=== PATIENT | male | born 1965 | race Caucasian/White ===

== ENCOUNTER 2019-12-25 14:08 | Emergency (ER) | payer MEDICARE, SELFPAY ==
[2019-12-25 14:25] VITALS: BP 162/103; PULSE 97; RESP 18; TEMP 36.5; O2SAT 96; BMI 22.8
--- NOTE | 2019-12-25 14:30 | W.ED.ANIMALB ---
HPI - Animal Bite General: Chief Complaint: Animal Bite Stated Complaint: dog bite r hand Time Seen by Provider: 12/25/19 14:30 History of Present Illness: HPI narrative: Patient is a 54-year-old male who comes to the ED with a dog bite on right hand. Patient says his dog was caught in a fence and hurt. When patient tried to freeze dog from fence bit at his right hand. Patient says the dog bit down pretty hard. He says his dog is fully vaccinated and has been vaccinated for rabies as well. Injury occurred earlier this morning. He reports increasing pain and swelling in right hand. Pain rated a 7 out of 10. Puncture wounds are not actively bleeding and bite was located fifth metatarsal region. Patient says he has not had tetanus shot in a long time. Associated symptoms: Deny chills, fever(s) or headache(s) Review of Systems Const: Denies: fever(s), chills or fatigue Eyes: Denies: change in vision or eye discomfort ENMT: Denies: throat pain, odynophagia, nasal discharge or nasal congestion Card: Denies: chest pain, palpitations, edema, swelling of feet/ankles, dyspnea on exertion or orthopnea Resp: Denies: dyspnea, productive cough or non-productive cough GI: Denies: abdominal pain, nausea, vomiting, diarrhea, constipation or hematochezia : Denies: flank pain, difficulty urinating, dysuria or hematuria Musc: Reports: extremity pain (right hand) and extremity swelling (Right hand swelling.); Denies: neck pain or back pain Skin/Breast: Reports: new lesions (Dog bite puncture wounds on right hand.); Denies: rash Neuro: Denies: headache(s), numbness in extremities or weakness in extremities Physical Exam Const: COMMON NORMALS: no acute distress, patient oriented x3 and alert GENERAL APPEARANCE: cooperative and comfortable HENMT: COMMON NORMALS: normocephalic HEAD & SCALP: normocephalic MOUTH: Normal oral and palatal mucosa present THROAT: posterior oropharynx normal and uvula midline Neck/C-Spine: COMMON NORMALS: supple GENERAL: Yes normal visual inspection Resp: COMMON NORMALS: normal respiratory effort, No retractions, No use of accessory muscles and clear to auscultation bilaterally AUSCULTATION: clear to auscultation bilaterally Cardio: COMMON NORMALS: regular rate, regular rhythm, S1 normal heart sound present, S2 normal heart sound present, No gallops present (Cardio), No clicks present (Cardio), No murmurs present (Cardio) and Peripheral pulses 2+ throughout RATE: regular rate RHYTHM: regular rhythm HEART SOUNDS: S1 normal heart sound present and S2 normal heart sound present PERIPHERAL PULSES: Peripheral pulses 2+ throughout GI: COMMON NORMALS: Normal to inspection, nondistended, normoactive bowel sounds present, Soft to palpation, non-tender and no masses PALPATION: Yes Soft to palpation : COMMON NORMALS: Yes no CVA tenderness BLADDER/KIDNEY EXAM: Yes no CVA tenderness Back/Pelvis: COMMON NORMALS: no CVA tenderness Extremity: NARRATIVE EXTREMITY EXAM: Right hand?patient has visible swelling metatarsal area of the fifth digit. There is also ecchymosis present. Puncture wounds seen right hand with no bleeding or purulent drainage. No warmth or erythema present. Tender upon palpation fifth digit and especially metatarsal region. Neuro: COMMON NORMALS: patient oriented x3 and moves all extremities SENSORIUM/ORIENTATION: Yes alert Skin: TRAUMA: puncture (Multiple puncture wounds on right hand that have no active bleeding or drainage. No surrounding erythema or warmth.) Course Vital Signs: Vital signs: Vital Signs Temperature 97.7 F 12/25/19 14:25 Pulse Rate 97 12/25/19 14:25 Respiratory Rate 18 12/25/19 14:25 Blood Pressure 162/103 12/25/19 14:25 Pulse Oximetry 96 12/25/19 14:25 MDM - Animal Bite MDM Narrative: Medical decision making narrative: Patient is a 54-year-old male comes to the ED with right hand after dog bite. Patient says it was his own dog and the dog was fully vaccinated including for rabies as well. Right hand- had swelling and ecchymosis around the metatarsal region of the fifth digit along with some puncture wounds seen with no erythema warmth or purulent drainage. X-ray of right hand showed proximal nondisplaced phalanx fracture of fifth digit. Patient was given updated tetanus shot and given of dose of Bactrim while here in the ED. He was sent home with a finger splint and a prescription for Bactrim and a prescription for hydrocodone 5/325mg tabs-qty 8. Follow-up with PCP in 7 to 10 days for reevaluation. Return to ED precautions given and I highlighted the concerns of infection. patient understood and agreed with plan. Imaging Data^: Xray Ortho: Attestation: I personally reviewed and interpreted this imaging study as follows: My impression: Right hand x-ray?patient is nondisplaced fracture of proximal phalanx of fifth digit. Discharge Plan Discharge Patient Disposition: Home Clinical Impression: Bite by animal Proximal phalanx fracture of finger Qualifiers: Encounter type: initial encounter Finger: little finger Fracture type: open Fracture alignment: nondisplaced Laterality: right Qualified Code(s): S62.646B - Nondisplaced fracture of proximal phalanx of right little finger, initial encounter for open fracture Condition: Stable Prescriptions: New sulfamethoxazole-trimethoprim 800-160 mg tablet 1 tab PO BID 7 Days Qty: 14 RF: 0 Discharge Orders: Discharge Order (Routine); Ordered 12/25/19 Ordered By: Elías Tubbs Discharge Diet: Regular Discharge Activity: Limit activity as instructed Patient Instructions: Fractures - Phalanx (Finger), Animal Bite (ED) Activity Restrictions/Additional Instructions: Follow-up with medical provider as directed in 7 to 10 days. Take medications as prescribed. Return to the ER or your medical provider if condition worsens. Please read and understand discharge instructions. If any questions, please ask. 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
--- NOTE | 2019-12-25 14:36 | XRR_ITS ---
PROCEDURE INFORMATION: Exam: XR Right Hand Exam date and time: 12/25/2019 2:40 PM Age: 54 years old Clinical indication: Injury or trauma; Other: Dog bite; Hand; Right; Additional info: Dog bit on hand with swelling TECHNIQUE: Imaging protocol: XR Right hand. Views: 3 or more views. COMPARISON: No relevant prior studies available. FINDINGS: Bones/joints: There is a nondisplaced spiral fracture of the diaphysis of the 5th proximal phalanx. No dislocation. Soft tissues: There is soft tissue edema. No foreign body. XR/XR hand RT min 3V* [id number] IMPRESSION: There is a nondisplaced spiral fracture of the diaphysis of the 5th proximal phalanx. One
[2019-12-25] MEDS: HYDROcodone-acetaminophen 7.5-325 mg Tablet 1 TAB PO (15:10)
[2019-12-25] MEDS: amoxicillin-clav 500-125 mg Tablet 1 TAB PO (15:10)
[2019-12-25] MEDS: tetanus-diphtheria tox (adult) 0.5 mL SDV IM (15:12)
[2019-12-25] MEDS: sulfamethoxazole-trimeth DS 160-800 mg Tablet 1 TAB PO (15:17)
== END 2019-12-25 15:20 | disposition home or self-care (01) ==
PROVIDERS: Emergency Provider Physician Assistant
DX: S62.646B Nondisplaced fracture of proximal phalanx of right little finger, initial encounter for open fracture (principal); S61.451A Open bite of right hand, initial encounter; W54.0XXA Bitten by dog, initial encounter; Z23 Encounter for immunization
CPT/HCPCS: 12345; 73130; 90471; 90714; 99281; 99283

== ENCOUNTER → 2020-01-06 14:35 | Outpatient (BNVA) | payer MEDICARE, SELFPAY | PROVIDERS: Referring Provider Nurse Practitioner; Visit Provider Orthopaedic Surgery | DX: S62.609 Fracture of unspecified phalanx of unspecified finger (principal); X58.XXXS Exposure to other specified factors, sequela; Z46.89 Encounter for fitting and adjustment of other specified devices; S62.616D Displaced fracture of proximal phalanx of right little finger, subsequent encounter for fracture with routine healing; X58.XXXD Exposure to other specified factors, subsequent encounter | CPT/HCPCS: 73140; 97760; L3807 ==

== ENCOUNTER 2020-01-06 14:58 | Outpatient (CLI) | payer MEDICARE, MEDICAID, SELFPAY | END 2020-01-06 14:59 | disposition home or self-care (01) | LOC: SPT 14:59 | PROVIDERS: Visit Provider Orthopaedic Surgery | DX: Z46.89 Encounter for fitting and adjustment of other specified devices (principal); S62.616D Displaced fracture of proximal phalanx of right little finger, subsequent encounter for fracture with routine healing; X58.XXXD Exposure to other specified factors, subsequent encounter | CPT/HCPCS: 97760; L3807 ==

== ENCOUNTER → 2020-01-25 15:01 | Outpatient (BNVA) | payer MEDICARE, SELFPAY | PROVIDERS: Visit Provider Orthopaedic Surgery | DX: S62.616D Displaced fracture of proximal phalanx of right little finger, subsequent encounter for fracture with routine healing (principal); W54.0XXD Bitten by dog, subsequent encounter; S62.626D Displaced fracture of middle phalanx of right little finger, subsequent encounter for fracture with routine healing | CPT/HCPCS: 73140 ==

== ENCOUNTER → 2020-02-22 14:02 | Outpatient (BNVA) | payer MEDICARE, SELFPAY | PROVIDERS: Visit Provider Orthopaedic Surgery | DX: M54.9 Dorsalgia, unspecified (principal); M54.2 Cervicalgia; Z47.89 Encounter for other orthopedic aftercare | CPT/HCPCS: 72050; 72114 ==

== ENCOUNTER 2020-03-28 07:34 | Outpatient (CLI) | payer MEDICARE, SELFPAY ==
--- NOTE | 2020-03-28 07:41 | MR_ITS ---
WS: [id number] MRI LUMBAR SPINE NONCONTRAST TECHNIQUE: Sagittal T1, T2 and STIR imaging. Axial T1 and T2 imaging. CLINICAL INFORMATION: M48.061 - Spinal stenosis, lumbar region without neurogenic claudication COMPARISON: MRI FINDINGS: Mild lumbar curve. No acute compression. Anterior lumbar fusion L5-S1 with interbody fusion. Alignmen t appears unchanged since 2018. No high-grade central canal stenosis. L1-L2: Normal. L2-L3: No significant disc bulging. Mild facet arthropathy. Spinal canal and foramen are patent. L3-L4: Small left foraminal protrusion with mild left and no significant right foraminal narrowing. M ild facet arthropathy. Spinal canal is patent. L4-L5: Mild annular bulging with narrowing of the subarticular recess bilaterally. Slight encroachmen t traversing L5 nerve roots. Small right foraminal protrusion contacts the exiting right L4 nerve helder t. Mild right foraminal narrowing. Mild left foraminal narrowing. Moderate facet arthropathy. L5-S1: Postoperative changes anterior interbody cervical fusion. Central osteophytic ridging with sli ght effacement of the ventral thecal sac. Mild right foraminal narrowing. Mild facet arthropathy. Visualized pelvic bony structures: Normal. Paravertebral soft tissues: Normal. MR/MR lumbar spine wo con* [id number] IMPRESSION: 1. Mild lumbar curve. No acute compression. Stable appearing anterior interbod y fusion L5-S1. 2. Small right foraminal protrusion L4-5 contacts the exiting right L4 nerve r oot. 3. Mild annular bulging L4-5 with slight encroachment traversing L5 nerve root s bilaterally. 4. Mild to moderate facet arthropathy L4-L5 and L5-S1. 5. Tiny left foraminal protrusion L3-4 with mild left foraminal narrowing.
--- NOTE | 2020-03-28 07:41 | MR_ITS ---
WS: [id number] MRI CERVICAL SPINE NONCONTRAST TECHNIQUE: Sagittal T1, T2 and STIR imaging. Axial T2, gradient, and fiesta imaging. CLINICAL INFORMATION: M47.12 - Other spondylosis with myelopathy, cervical region COMPARISON: CT 9 FINDINGS: Straightening of the normal cervical lordosis. Prior postoperative changes C3-C6 with interbody fusio n. Mild central canal stenosis C3-C6. Cord signal is normal. C2-C3: Normal. C3-C4: ACDF. Mild central canal stenosis. Mild bilateral bony foraminal narrowing. Mild facet arthrop athy. C4-C5: ACDF. Mild central canal stenosis. Mild bilateral bony foraminal narrowing. Mild facet arthrop athy. C5-C6: ACDF. Mild central canal stenosis. Moderate bilateral bony foraminal narrowing. Mild facet art hropathy. C6-C7: ACDF. Moderate to severe right and moderate left bony foraminal narrowing. Mild facet arthropa thy. C7-T1: Right pericentral disc protrusion with contact of the right ventral cervical cord. Mild t o moderate central canal stenosis. Moderate right and mild left bony foraminal narrowing. Moderate fa cet arthropathy. T1-T2: Small central disc protrusion. Mild central canal stenosis. Foramen appear patent. Visualized brain stem structures: Normal. Prevertebral soft tissues: Normal. MR/MR cervical spin wo con* [id number] IMPRESSION: 1. Straightening of the normal cervical lordosis with prior ACDF C3-C6. 2. Mild central canal stenosis C3-C6 appears unchanged. 3. Bony foraminal narrowing worse at right C5-C6 and C6-C7. 4. Shallow right pericentral protrusion C7-T1 with slight contact of the cervi soraya cord and mild to moderate central canal stenosis. Moderate right C7-T1 bony foraminal narrowing.
== END 2020-03-28 07:35 | disposition home or self-care (01) ==
PROVIDERS: Visit Provider Orthopaedic Surgery
DX: M47.12 Other spondylosis with myelopathy, cervical region (principal); M48.061 Spinal stenosis, lumbar region without neurogenic claudication; M51.26 Other intervertebral disc displacement, lumbar region; M47.816 Spondylosis without myelopathy or radiculopathy, lumbar region; M47.817 Spondylosis without myelopathy or radiculopathy, lumbosacral region; M50.23 Other cervical disc displacement, cervicothoracic region; M43.22 Fusion of spine, cervical region; M48.02 Spinal stenosis, cervical region
CPT/HCPCS: 72141; 72148

== ENCOUNTER → 2020-05-09 08:14 | Outpatient (BNVA) | payer MEDICARE, SELFPAY | PROVIDERS: Visit Provider Anesthesiology Pain Medicine | DX: M48.061 Spinal stenosis, lumbar region without neurogenic claudication (principal); M47.12 Other spondylosis with myelopathy, cervical region; M54.12 Radiculopathy, cervical region; M47.812 Spondylosis without myelopathy or radiculopathy, cervical region; M47.816 Spondylosis without myelopathy or radiculopathy, lumbar region; M54.16 Radiculopathy, lumbar region; F17.210 Nicotine dependence, cigarettes, uncomplicated | CPT/HCPCS: 99205 ==

== ENCOUNTER → 2020-05-17 13:15 | Outpatient (BNVA) | payer MEDICARE, SELFPAY | PROVIDERS: Visit Provider Anesthesiology Pain Medicine | DX: M54.12 Radiculopathy, cervical region (principal); F17.210 Nicotine dependence, cigarettes, uncomplicated | CPT/HCPCS: 62321; J1100 ==

== ENCOUNTER → 2020-06-02 09:51 | Outpatient (BNVA) | payer MEDICARE, SELFPAY | PROVIDERS: PCP Family Medicine; Visit Provider Anesthesiology Pain Medicine | DX: G89.29 Other chronic pain (principal); M51.17 Intervertebral disc disorders with radiculopathy, lumbosacral region; M48.061 Spinal stenosis, lumbar region without neurogenic claudication; M47.12 Other spondylosis with myelopathy, cervical region; M47.812 Spondylosis without myelopathy or radiculopathy, cervical region; M47.816 Spondylosis without myelopathy or radiculopathy, lumbar region; G62.9 Polyneuropathy, unspecified; F17.210 Nicotine dependence, cigarettes, uncomplicated | CPT/HCPCS: 99214 ==

== ENCOUNTER → 2020-06-05 10:42 | Outpatient (BNVA) | payer MEDICARE, SELFPAY | PROVIDERS: PCP Family Medicine; Visit Provider Surgery | DX: D17.1 Benign lipomatous neoplasm of skin and subcutaneous tissue of trunk (principal); Z20.822 Contact with and (suspected) exposure to COVID-19 | CPT/HCPCS: 87635 ==

== ENCOUNTER 2020-06-08 07:36 | Day surgery (SDC) | payer MEDICARE, SELFPAY ==
[2020-06-08 07:40] VITALS: BP 149/102; PULSE 100; RESP 18; TEMP 36.2; O2SAT 99
[2020-06-08] MEDS: sodium chloride 0.9% 1,000 ML 30 ML IV (08:01)
--- NOTE | 2020-06-08 08:13 | P.ANESASSM_ITS ---
Pre-Anesthetic Assessment Pre-Anesthetic Assessment: Height/Weight: Height 1.75 m Temp Pulse Resp BP Pulse Ox 97.1 F L 100 18 149/102 99 06/08/20 07:40 06/08/20 07:40 06/08/20 07:40 06/08/20 07:40 06/08/20 07:40 Preop Diagnosis: lipoma Proposed Procedure: Operation Date: 06/08/20 09:00 Proposed Procedures p EXCISION OF LIPOMA ON BACK 95079 D17.1(Not Applicable) - Minh Grimes MD Familial anesthetic complications: None Was Beta Collin taken within 24 hours: N/A Was Clonidine taken within 24 hours: N/A Last intake: NPO > 8 hrs Social: Social History: Tobacco and No alcohol Exam: Pre-Anes Outpt Exam: alert, oriented x 3, clear to auscultation bilaterally and regular rate & rhythm Airway: Cervical ROM: WNL (hurts during extension, has anterior cervical plate) MP: 4 Dentition: Other (no teeth) CV/HEM: CV/HEM: HTN Anesthetic Plan: ASA status: 2 Anesthesia: MAC Risk of > 500 ml blood loss (7ml/kg in children): No Meds/Allergies Current Medications: Current Medications Generic Name Dose Route Start Last Admin Trade Name Freq PRN Reason Stop Dose Admin Sodium Chloride 1,000 mls @ 30 ml s/hr 06/08/20 07:45 06/08/20 08:01 Sodium Chloride 0.9% IV 06/09/20 07:44 30 mls/hr .Q24H SHANNAN Administration PFSH Anesthesia PFSH: Medical History Benign essential HTN Surgical History History of lumbar fusion S/p bilateral carpal tunnel release S/P right knee surgery Status post left inguinal hernia repair Family History Mother No problems noted. Father , Had a pacemaker and defibrillator for 26 yeas Congestive heart failure Social History Smoking and tobacco status: current every day smoker cigarettes Packs smoked per day: 1 Alcohol intake: never History of recent travel: No Data Anesthesia Cardiac Studies: 2 No Data to Display
[2020-06-08] MEDS: vancomycin 1,000 MG in sodium chloride 0.9% 250 ML 250 MG IV (08:24)
--- NOTE | 2020-06-08 08:25 | SUR.PHASEII ---
talked to jeanette watkins is surgery and she informed me to start vanc at 0830.
--- NOTE | 2020-06-08 09:15 | W.PM.OPSUD ---
Surgery/Procedure H&P Update DATE OF PROCEDURE: June 08, 2020 DATE H&P PERFORMED: 05/26/20 H&P UPDATE INFORMATION: I have reviewed H&P completed within last 30 days, I have examined patient prior to procedure and No changes to prior documentation PREOP DIAGNOSIS: lipoma PLANNED PROCEDURE: Operation Date: 06/08/20 09:00 Proposed Procedures p EXCISION OF LIPOMA ON BACK 37194 D17.1(Not Applicable) - Minh Grimes MD
[2020-06-08] MEDS: lidocaine 1% INJ 20 mL SUBCUT (09:49)
[2020-06-08 10:01] VITALS: BP 109/79; PULSE 82; RESP 17; TEMP 36.9; O2SAT 97
--- NOTE | 2020-06-08 10:03 | P.PCN_ITS ---
PACU note PACU note: VSS, Good respiratory effort, report to GUITAR REPAIR TECHNICIAN Post-Anesthesia Exam: awake
--- NOTE | 2020-06-08 10:03 | PM.PACU ---
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
[2020-06-08 10:05] VITALS: BP 114/86; PULSE 78; RESP 14; O2SAT 93
[2020-06-08 10:10] VITALS: BP 115/90; PULSE 79; RESP 14; TEMP 36.8; O2SAT 97
--- NOTE | 2020-06-08 10:13 | PM.OP ---
Operative Report Date of procedure: June 08, 2020 Pre-op Diagnosis: 7 x 7 cm lipoma shoulder Post-op diagnosis: same Procedure Done: Excision of lipoma left shoulder Pathology: Lipoma left shoulder Surgeon: Minh Grimes Anesthesia: MAC Condition: stable Disposition: PACU Procedure: The patient was taken to the operating room and placed in right lateral position under MAC after IV antibiotic had been administered. The area around the palpable mass which was previously marked was prepped and draped in a sterile manner. 20cc of 1% lidocaine with 0.5% Marcaine was infiltrated around the palpable mass. A 5 cm transverse incision was made, subcutaneous tissue was divided using electrocautery and the lipoma was dissected free from the surrounding subcutaneous tissue and underlying muscular fascia and sent to pathology in formalin. Wound was irrigated with saline, hemostasis ensured and the subcutaneous tissues approximated using running 3-0 Vicryl suture and skin was closed with running subcuticular 4-0 Monocryl suture and surgical glue. The patient was transferred to recovery room in stable condition.
[2020-06-08 10:16] VITALS: BP 132/99; PULSE 78; RESP 18; TEMP 36.8; O2SAT 97
[2020-06-08 10:45] VITALS: BP 111/86; PULSE 68; RESP 18; TEMP 37.1; O2SAT 97
--- NOTE | 2020-06-08 13:30 | ANE.PACU2 ---
Inpatient post-anesthesia follow up: Airway intact: Yes Vital signs: Temperature 98.7 F Pulse Rate 68 Respiratory Rate 18 Blood Pressure 111/86 Pulse Oximetry 97 Oxygen Delivery Me thod Room Air Oxygen Flow Rate Fraction of Inspir ed Oxygen Hydration adequate: Yes Nausea and vomiting: No Pain level: 2 Mental status: Baseline
== END 2020-06-08 10:54 | disposition home or self-care (01) ==
PROVIDERS: PCP Family Medicine; Visit Provider Surgery
PROC: (CPT 11406; principal; 2020-06-08 09:00)
DX: D17.22 Benign lipomatous neoplasm of skin and subcutaneous tissue of left arm (principal); I10 Essential (primary) hypertension; L76.32 Postprocedural hematoma of skin and subcutaneous tissue following other procedure; Z98.1 Arthrodesis status; F17.210 Nicotine dependence, cigarettes, uncomplicated; Z82.49 Family history of ischemic heart disease and other diseases of the circulatory system
CPT/HCPCS: 11406; 12032; 88304; 96365; J0690; J1885; J2270; J2704; J3010; J3370; J3490; J7030; J7050

== ENCOUNTER 2020-06-08 13:15 | Day surgery (SDC) | payer MEDICARE, SELFPAY ==
[2020-06-08] VITALS (11 sets, daily range): BP systolic 126–143; BP diastolic 80–90; PULSE 81–87; RESP 16–20; TEMP 36.6; O2SAT 97–100
--- NOTE | 2020-06-08 13:23 | W.PM.OPSFHP ---
Same Day Surgery H&P Indication for Procedure/HPI DATE OF PROCEDURE: June 08, 2020 CHIEF COMPLAINT/INDICATIONFOR SURGICAL PROCEDURE: Postop hematoma after excision of lipoma left shoulder PREOP DIAGNOSIS: post op hematoma PLANNED PROCEDRUE: Operation Date: 06/08/20 14:10 Proposed Procedures p Incision And Drainage(Left) - Minh Grimes MD This is a 54-year-old male who had undergone excision of a 7 x 7 cm lipoma left shoulder earlier this morning. He subsequently went home and was sleeping on his recliner. When he woke up later in the day he noticed some drainage of blood and swelling at the postop site. He was seen in preop and an attempt was made to aspirate the hematoma which was unsuccessful. Patient was in moderate amount of pain and therefore decision was made to take him back to surgery for evacuation of hematoma. Medications/Allergies* Allergies/Adverse Reactions Allergy/AdvReac Type Severity Reaction Status Date / Time divalproex sodium Allergy ADR-Nausea Verified 06/08/20 08:09 [From Depakote] methadone Allergy RASH Verified 06/08/20 08:09 Penicillins Allergy RASH Verified 06/08/20 08:09 quetiapine [From Seroquel] Allergy RASH Verified 06/08/20 08:09 Pertinent History/Comorbid Conditions* Medical History (Updated 06/02/20 @ 10:56 by Uli Van MD) Benign essential HTN Surgical History (Updated 06/08/20 @ 10:12 by Minh Grimes MD) History of lumbar fusion S/p bilateral carpal tunnel release S/P excision of lipoma (06/08/20) left upper back S/P right knee surgery Status post left inguinal hernia repair Family History (Updated 05/09/20 @ 08:33 by Veronica Mendze LPN) Father, Had a pacemaker and defibrillator for 26 yeas Congestive heart failure Father Social History Smoking and tobacco status: current every day smoker cigarettes Packs smoked per day: 1 Alcohol intake: never History of recent travel: No Pertinent Exam Findings alert, oriented x 3, regular rate & rhythm and operative site marked 7 x 7 cm postop hematoma at the surgical site Recommendations Surgery/Procedure today Other Plans: Plan for evacuation of hematoma left shoulder under local anesthesia Procedure, risks, benefits and alternatives have been discussed with the patient who wishes to proceed with surgery. 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
[2020-06-08] MEDS: morphine 4 mg/mL SDV 1 mL IVP (13:45)
[2020-06-08] MEDS: ketorolac 30 mg/mL INJ IVP (13:45)
[2020-06-08] MEDS: lidocaine 1% INJ 20 mL 40 ML IM (14:07)
[2020-06-08] MEDS: neomycin-poly-bacitracin oint 28 gm 1 APPLIC TOPICAL (14:07)
--- NOTE | 2020-06-08 14:52 | PM.OP ---
Operative Report Date of procedure: June 08, 2020 Pre-op Diagnosis: 1. Postop hematoma status post excision of lipoma left upper shoulder Post-op diagnosis: same Procedure Done: Evacuation of hematoma left shoulder Pathology: none sent Surgeon: Minh Grimes Anesthesia: Local Condition: stable Disposition: PACU Procedure: The patient is taken to the operating room and placed in right arm position under MAC. 70 cc mixture of 1% lidocaine mixed with .5% Marcaine was infiltrated around the hematoma. Using 15 blade the prior incision was opened with drainage of hematoma. The wound was irrigated with saline and there were couple of small bleeders noted which were tied off with 3-0 Vicryl sutures. 8 x 4 cm Surgicel was placed within the wound after hemostasis was ensured. Patient also had some of the hematoma extending into the muscle planes which could not be evacuated. After hemostasis was ensured, subcutaneous tissue was approximated using interrupted 3-0 Vicryl suture and skin was closed with 3-0 Prolene suture. Antibiotic cream, Telfa and pressure dressings were applied. Patient tolerated procedure well.
== END 2020-06-08 15:04 | disposition home or self-care (01) ==
PROVIDERS: PCP Family Medicine; Visit Provider Surgery
PROC: (CPT 10140; principal; 2020-06-08 14:00)
DX: L76.32 Postprocedural hematoma of skin and subcutaneous tissue following other procedure (principal); Z98.1 Arthrodesis status; F17.210 Nicotine dependence, cigarettes, uncomplicated; I10 Essential (primary) hypertension; Z82.49 Family history of ischemic heart disease and other diseases of the circulatory system
CPT/HCPCS: 10140; J0690; J1885; J2270; J3490

== ENCOUNTER → 2020-06-30 09:50 | Outpatient (BNVA) | payer MEDICARE, SELFPAY | PROVIDERS: PCP Family Medicine; Visit Provider Anesthesiology Pain Medicine | DX: G89.29 Other chronic pain (principal); M47.12 Other spondylosis with myelopathy, cervical region; M47.812 Spondylosis without myelopathy or radiculopathy, cervical region; M51.17 Intervertebral disc disorders with radiculopathy, lumbosacral region; M48.061 Spinal stenosis, lumbar region without neurogenic claudication; M47.816 Spondylosis without myelopathy or radiculopathy, lumbar region; G62.9 Polyneuropathy, unspecified; F17.210 Nicotine dependence, cigarettes, uncomplicated | CPT/HCPCS: 99214 ==

== ENCOUNTER 2020-07-10 07:32 | Outpatient (CLI) | payer MEDICARE, SELFPAY ==
[2020-07-10 08:15] VITALS: BMI 22.8
--- NOTE | 2020-07-10 08:15 | ECG_ITS ---
[facility] Test Date: 2020-07-10 Pat Name: Ezra Pickering Department: Room: Gender: Male [employer]worker [employer]: : 1965 Requested By: Daphney Celestin Order Number: [id number] Boyle MD: Xiao Hinds M.D. Interpretive Statements NAME OF STUDY: LEXISCAN SESTAMIBI STRESS TEST INDICATION: Atypical Chest Pain PROCEDURE: At the baseline, the blood pressure was 135/92 mmHg with a heart rate of 66 bpm. The electrocardiogram showed normal sinus rhythm, normal axis with normal ST-T's. The Lexiscan was infused over a period of 20 seconds. A total of 0.4 milligrams of Lexiscan was infused. The stress phase was continued for a total of 5 minutes. Heart rate at the end of the stress phase was 83 bpm with a blood pressure of 131/85 mmHg. The EKG at the peak infusion revealed sinus rhythm with no significant ST-T wave changes. The study was terminated due to protocol completion. Sestamibi was injected 20 seconds after the Lexiscan infusion. Blood pressure at the end of the recovery phase was 123/90 mmHg with a heart rate of 93 beats per minute. CONCLUSION: 1. No significant EKG changes with the LexiScan infusion 2. No LexiScan induced chest pain or cardiac arrhythmia. 3. Normal blood pressure and heart rate response. 4. Sestamibi/sestamibi perfusion scan pending; see separate report. Electronically Signed On 07-11-2020 18:37:30 CDT by Xiao Hinds M.D. [id number]
--- NOTE | 2020-07-10 08:16 | NMCV_ITS ---
NM cachorro perf SPECT r/s* [id number] Ezra Pickering Age: 54 Gender: M : 1965 Exam Date: 07/10/2020 08:53 Ordering Phys: Daphney Celestin DO Technologist: HALLEY Vick Exam Location: [facility] Indications: ATYPICAL CHEST PAIN STRESS TEST Please see separate stress test report in [facility] for full findings IMAGE PROTOCOL Rest/Stress 1 Lexiscan Day Radiopharmaceutical Dose (mCi) Administration Site Administered by Rest: Tc-99m 10.4 IV HALLEY Vick Sestamibi Stress:Tc-99m 32.9 IV HALLEY Reeder Sestamibi Rest: 10-Jul-2020 60 Discovery 630 Stress: 10-Jul-2020 30 Discovery 630 0.4mg Lexiscan. Images obtained in supine and prone position. SPECT RESULTS Technical Quality: Excellent Raw Data Analysis: Normal Image Corrections: No attenuation or motion correction applied Summed Stress Score: 1 Summed Rest Score: 0 Summed Difference Score: 1 PERFUSION FINDINGS Small sized reversible sized perfusion abnormality of mild severity of apical lateral and apical chi. FUNCTIONAL RESULTS (calculated via Gated SPECT) Stress Image LV EF (%): 72 Stress EDV (mL):86 TID: 1.04 Stress ESV (mL):24 FUNCTIONAL FINDINGS: The left ventricle is normal in size. Transient Ischemia Dilatation of 1. There is normal left ventricular systolic function. The left ventricular ejection fraction is normal with a value of 72%. There is normal left ventricular wall thickening with no regional wall motion abnormality. Normal end diastolic and end systolic volumes. IMPRESSIONS 1. Small sized reversible sized perfusion abnormality of mild severity of apical lateral and apical chi. 2. This may represent small area of ischemia in left anterior descending artery territory. 3. Overall left ventricular systolic function is normal without regional wall motion abnormalities. 4. The left ventricular ejection fraction is normal with a value of 72%. 5. This appears to be new when compared to stress test dated 02/09/2018. Xiao Hinds MD (Electronically Signed) Final Date: 13 Jul 2020 15:42 S
[2020-07-10 10:00] VITALS: BP 123/90; PULSE 93
[2020-07-10] MEDS: regadenoson 0.4 Mg/5 ml Syringe IVP (10:01)
== END 2020-07-10 07:33 | disposition home or self-care (01) ==
LOC: RAD 07:41 → CDL 08:11
PROVIDERS: PCP Family Medicine; Visit Provider Family Medicine
DX: R07.89 Other chest pain; R06.09 Other forms of dyspnea; I10 Essential (primary) hypertension; R35.1 Nocturia
CPT/HCPCS: 78452; 80053; 80061; 82043; 84153; 85025; 93017; A9500; J2785

== ENCOUNTER → 2020-07-17 13:48 | Outpatient (BNVA) | payer MEDICARE, SELFPAY | PROVIDERS: PCP Family Medicine; Visit Provider Anesthesiology Pain Medicine | DX: M54.12 Radiculopathy, cervical region (principal); F17.210 Nicotine dependence, cigarettes, uncomplicated | CPT/HCPCS: 62321; J1100 ==

== ENCOUNTER → 2020-07-28 10:56 | Outpatient (BNVA) | payer MEDICARE, SELFPAY | PROVIDERS: PCP Family Medicine; Visit Provider Anesthesiology Pain Medicine | DX: M48.061 Spinal stenosis, lumbar region without neurogenic claudication (principal); M54.16 Radiculopathy, lumbar region; M47.816 Spondylosis without myelopathy or radiculopathy, lumbar region; M47.12 Other spondylosis with myelopathy, cervical region; M54.12 Radiculopathy, cervical region; M47.812 Spondylosis without myelopathy or radiculopathy, cervical region; F17.210 Nicotine dependence, cigarettes, uncomplicated | CPT/HCPCS: 99214 ==

== ENCOUNTER → 2020-08-17 10:59 | Outpatient (BNVA) | payer MEDICARE, SELFPAY | PROVIDERS: PCP Family Medicine; Visit Provider Internal Medicine Cardiovascular Disease | DX: R94.39 Abnormal result of other cardiovascular function study (principal); Z01.818 Encounter for other preprocedural examination; Z20.822 Contact with and (suspected) exposure to COVID-19 | CPT/HCPCS: 80048; 85025; 85610; 87635 ==

== ENCOUNTER 2020-08-22 07:27 | Day surgery (SDC) | payer MEDICARE, SELFPAY ==
[2020-08-22] VITALS (14 sets, daily range): BP systolic 95–146; BP diastolic 68–94; PULSE 59–90; RESP 15–23; TEMP 36.6; O2SAT 93–100; BMI 23.8
--- NOTE | 2020-08-22 07:30 | XACV_ITS ---
Ht: 175 cm Wt: 73 kg BSA: 1.89 m2 Gender: Male : 1965 Any Known Allergies: Other Exam Priority: Routine Procedure(s): Procedure Description: Diagnostic procedure Diagnostic Findings * Left Main has no disease. * Circumflex has no disease. * Right Coronary Artery has no disease. * Proximal Left Anterior Descending: moderate 50% stenosis, CHRISS: 3 flow, FFR performed: ratio is 0.93. * Coronary angiography shows right dominance. Conclusions 1. There is moderate coronary artery disease with one vessel disease. 2. FFR: After equalizing the distal and proximal pressure of FFR wire proximal to the lesion, proximal LAD lesion was crossed with FFR wire. IV adenosine at rate of 140 mcg/min was started. Patient did not compliant of any symptoms, at then end of two minutes FFR was recorded as 0.93, which is not significant . Recommendations * Continue current medical management and risk factor modification. Interventional RX Recommendation: medical therapy and/or counseling Diagnostic RX Recommendation: medical therapy and/or counseling Pressures Phase:Rest AO : 194 / 60 ( 88 ) @ 9:09:00 AM 103 / 73 ( 88 ) @ 9:15:00 AM 150 / 51 ( 48 ) @ 9:16:00 AM LV : 106 / 8 / 12 @ 9:15:00 AM 109 / 9 / 20 @ 9:15:00 AM Valves Phase:DefaultPhase AV : 4.0 @ 10:44:12 AM AV Mean Gradient: 6.0 @ 10:44:12 AM 6.0 @ 10:44:12 AM Clinical Evaluation EBL: 5mL-10mL Procedural Details Procedure Consent Obtained. Pre-Procedure Time Out. Identified patient by full name and date of as verbalized by the patient/guarantor. Does the consent match the physician's order: Yes. Accurate & Complete Informed Consent: Yes. Inpatient/Outpatient History & Physical on Chart: Yes. If H&P is completed, is and addenduem needed: N/A; If yes, is the addendum complete: N/A. Visualize and Verify Site with Patient/Guarantor: N/A. Relevant Radiology Images available: Yes. Pre-op teaching completed and patient verbalized understanding. The risks, benefits, and alternatives of sedation and/or procedure were discussed by physician. The patient agrees to continue. Procedure started. PERRLA. Strong, equal hand craft superintendent bilaterally. Lungs clear x 5 lobes. IV Site on Arrival: 20 gauge in the left anticubital. IV Fluids: 0.9% NaCl at KVO. 0 mL infused prior to cook house laborer. Pre Procedural Pulses: bilateral dorsalis pedis was 3+. Pre Procedural Pulses: bilateral posterior tibial was 3+. Pre Procedural Pulses: bilateral radial was 3+. Oxygen started at 2liters/min via nasal canula. right groin was prepped with chloroprep then draped in the usual sterile fashion. right radial was prepped with chloroprep then draped in the usual sterile fashion. Physician notified. Equipment: 6F - Radial. Cardiac Cath Pack. ACIST Manifold Kit Model BT 2000. Heparinized Saline (2 units/mL), 1000 mL bag. Physician arrived. Baseline sample Acquired. HR: 75 BPM. Physician scrubbed in. Immediate Pre-Procedure Time Out. Correct Patient: Yes; Correct Procedure: Yes; Correct Site: Yes; Correct Patient Position: Yes; Correct Supplies: Yes; Dried Flammable Prep: Yes; Blood Products Available: No;. Lidocaine 1% infiltrated to the right radial. Arterial access obtained. A 5 austrian TIG catheter in over wire. Multiple views taken of left coronary artery. Catheter redirected to the RCA. Catheter out. A 5 austrian JR4 catheter in over wire. EDP Sample taken: LV 106/8,12; HR: 70 BPM; SpO2: 98%. Pullback taken: LV 109/9,20; AO 103/73(88); Mean: 6mmHg, Peak to Peak: 4mmHg, SEP: 15sec/min; HR: 65 BPM; SpO2: 98%. Multiple views taken of right coronary artery. Catheter out. 6 austrian JL 4 guide catheter was inserted over the wire. FFR guidewire was advanced through the guide catheter to lesion in the mid LAD. An FFR value of 0.93 was obtained for a lesion located at Mid LAD. Fractional flow reserve measurements obtained. Multiple views taken of left coronary artery. Guide catheter out. A TR Band was successful obtaining hemostatsis at the Right Radial artery insertion site. TR band placed. Hemostasis obtained. Post Procedure: Pulses reassessed and unchanged. PERRLA. Strong, equal hand craft superintendent bilaterally. No VTE prophylaxis required. Medication's Wasted: Other = versed 1 mg. Medication's Wasted: Other = fentanyl 50 mcg. Medication's Wasted: Heparin = 4000 units. Medication's Wasted: Lidocaine 1% = 18 mL. Medication's Wasted: Nitro = 49.8 mcg. Medication's Wasted: Other = adenosine 53 mg. Total IV fluids: 60 mL. Fluoro: 9:30. Contrast type used: Omnipaque 300 mgI/mL, 500 mL bottle. [id number]. Post-op diagnosis: nonobstructive CAD. Complications: none. Estimated blood loss: 5mL-10mL. Procedure completed. Patient transferred by wheelchair to CPRU. [facility] Clinical Fraility Score: 3: Managing Well. Travel Counselor Indications: New Onset Angina. Chest Pain Symptom Assessment: Typical Angina Symptoms. Cardiovascular Instability: No. Vital chart was stopped. Access Site Site: Right Radial artery Sheath Size: 5 Fr Hemostasis Method: TR Band Hemostasis Success: Successful Procedure Medications Start: 9:54 AM Stop: 9:54 AM Medication: Versed Amount: 1 mg Route: I.V. Start: 9:54 AM Stop: 9:54 AM Medication: Fentanyl Amount: 50 mcg Start: 10:07 AM Stop: 10:07 AM Medication: Nitrogylcerin Amount: 200 mcg Route: I.A. Start: 10:08 AM Stop: 10:08 AM Medication: Heparin Amount: 5000 units Route: I.V. Start: 10:15 AM Stop: 10:15 AM Medication: Versed Amount: 1 mg Route: I.V. Start: 10:15 AM Stop: 10:15 AM Medication: Fentanyl Amount: 50 mcg Start: 10:19 AM Stop: 10:19 AM Medication: Heparin Amount: 2000 units Route: I.V. I, the attending physician, have reviewed and verified all procedure medications. Yes, all medications given per verbal order History/Risk Factors Hypertension: Yes Dyslipidemia: Yes Tobacco Use: Current/Recent(w/in 1 year) Report Signatures Finalized by Maikel Badillo MD on 09/04/2020 08:22 PM
[2020-08-22] MEDS: diphenhydrAMINE 50 mg Capsule PO (08:37)
--- NOTE | 2020-08-22 09:42 | W.PM.OPSFHP ---
Same Day Surgery H&P Indication for Procedure/HPI DATE OF PROCEDURE: August 22, 2020 CHIEF COMPLAINT/INDICATIONFOR SURGICAL PROCEDURE: Chest pain worsening of shortness of breath abnormal stress test PREOP DIAGNOSIS: Abnormal stress test chest pain, shortness of breath PLANNED PROCEDRUE: Operation Date: 08/22/20 08:30 Proposed Procedures p Cardiac Catheterization 88718 R94.39(Left) - Maikel Badillo MD 54-year-old male past medical history significant hypertension hyperlipidemia nonobstructive coronary artery disease of LAD for worsening of shortness of breath and chest pain underwent stress test which showed small area of apical ischemia however despite of optimization of medicine patient continues to do worse therefore Dr. Hinds referred him for left heart cath. Patient has been explained all risk benefit and alternative for the procedure. Patient has been explained risk for urgent emergent bypass, transfusion, stroke, . He is a good candidate for dual antiplatelet therapy. He would like to proceed with it Medications/Allergies* Allergies/Adverse Reactions Allergy/AdvReac Type Severity Reaction Status Date / Time divalproex sodium Allergy ADR-Nausea Verified 08/18/20 14:56 [From Depakote] methadone Allergy RASH Verified 08/18/20 14:56 Penicillins Allergy RASH Verified 08/18/20 14:56 quetiapine [From Seroquel] Allergy RASH Verified 08/18/20 14:56 Current Medications: Generic Name Dose Route Start Last Admin Trade Name Freq PRN Reason Stop Dose Admin Sodium Chloride 1,000 mls @ 50 mls/hr 08/22/20 07:30 08/22/20 08:37 Sodium Chloride 0.9% IV 08/23/20 03:29 Not Given .Q20H ONE Pertinent History/Comorbid Conditions* Medical History (Updated 07/20/20 @ 05:20 by Xiao Hinds MD) Benign essential HTN Hyperlipidemia PAD (peripheral artery disease) Surgical History (Updated 06/24/20 @ 11:04 by Minh Grimes MD) History of lumbar fusion S/p bilateral carpal tunnel release S/P excision of lipoma (06/08/20) left upper back S/P right knee surgery Status post left inguinal hernia repair Family History (Updated 05/09/20 @ 08:33 by Veronica Mendez LPN) Father, Had a pacemaker and defibrillator for 26 yeas Congestive heart failure Father Social History Smoking and tobacco status: current every day smoker cigarettes Packs smoked per day: 1 Alcohol intake: never History of recent travel: No Pertinent Exam Findings alert, oriented x 3 and clear to auscultation bilaterally Conscious Sedation Assessment PATIENT ASSESSED PRIOR TO SEDATION, WITH NO CHANGE NOTED: Yes AIRWAY EVAL/ANESTHESIA PLAN: ASA II, Risks, benefits & alternatives of sedation and/or procedure discussed and Patient agrees to continue as planned Recommendations Surgery/Procedure today Coding Level of Care Code Acute Social Media Intern for Josefina Love
--- NOTE | 2020-08-22 10:50 | PC.NURSE ---
recovery pt received from research laboratory specialist post diagnostic [facility]. pt drowsy but able to walk assisted by nurse to get into bed. was able to follow command regarding not using right wrist. will continue to educated on restrictions. pt placed on vitals to obtain per protocol. tr band on right wrist, no bruising or hematoma noted.
--- NOTE | 2020-08-22 13:38 | PC.NURSE ---
tr band tr band removed, no brusing or hematoma noted
== END 2020-08-22 14:13 | disposition home or self-care (01) ==
PROVIDERS: PCP Family Medicine; Visit Provider Internal Medicine Cardiovascular Disease
DX: I25.10 Atherosclerotic heart disease of native coronary artery without angina pectoris (principal); R94.39 Abnormal result of other cardiovascular function study; R07.9 Chest pain, unspecified; R06.02 Shortness of breath; I10 Essential (primary) hypertension; E78.5 Hyperlipidemia, unspecified; F17.210 Nicotine dependence, cigarettes, uncomplicated
CPT/HCPCS: 36415; 93452; 93571; C1769; C1887; C1894; J0153; J1644; J2250; J3010; J3490; J7030; Q0163; Q9967

== ENCOUNTER → 2020-10-26 12:57 | Outpatient (BNVA) | payer MEDICARE, SELFPAY | PROVIDERS: PCP Family Medicine; Visit Provider Anesthesiology Pain Medicine | DX: G89.29 Other chronic pain (principal); M47.816 Spondylosis without myelopathy or radiculopathy, lumbar region; M54.16 Radiculopathy, lumbar region; M48.061 Spinal stenosis, lumbar region without neurogenic claudication; M47.12 Other spondylosis with myelopathy, cervical region; M54.12 Radiculopathy, cervical region; M47.812 Spondylosis without myelopathy or radiculopathy, cervical region; G62.9 Polyneuropathy, unspecified; F17.210 Nicotine dependence, cigarettes, uncomplicated | CPT/HCPCS: 99214 ==

== ENCOUNTER 2020-11-20 09:26 | Outpatient (CLI) | payer MEDICARE, SELFPAY ==
--- NOTE | 2020-11-20 09:33 | XR_ITS ---
WS: [id number] LATERAL LUMBAR SPINE: 3 view. Lateral radiographs are performed in upright neutral, flexion and extension to the patient's toleranc e. HISTORY: M47.816 - Spondylosis without myelopathy or radiculopathy... COMPARISON: 02/22/2020 Anterior lumbar fusion with interbody spacer at the L5-S1 level. Moderate narrowing of the L5-S1 disc space appears stable. Posterior alignment of the vertebral bodies is normal. With flexion and extens ion there is no instability. There is mild increase in lordosis. Scattered plaque within the visualized aorta. XR/XR lumbar spine f/e only 48053 IMPRESSION: 1. Stable anterior lumbar fusion at L5-S1 with interbody spacer. 2. No lumbar spine instability.
== END 2020-11-20 09:27 | disposition home or self-care (01) ==
PROVIDERS: PCP Family Medicine; Visit Provider Anesthesiology Pain Medicine
DX: M47.816 Spondylosis without myelopathy or radiculopathy, lumbar region (principal); M43.27 Fusion of spine, lumbosacral region
CPT/HCPCS: 72120

== ENCOUNTER → 2020-11-23 13:21 | Outpatient (BNVA) | payer MEDICARE, SELFPAY | PROVIDERS: PCP Family Medicine; Visit Provider Anesthesiology Pain Medicine | DX: G89.29 Other chronic pain (principal); M54.16 Radiculopathy, lumbar region; M54.12 Radiculopathy, cervical region; M47.812 Spondylosis without myelopathy or radiculopathy, cervical region; M47.12 Other spondylosis with myelopathy, cervical region; M48.061 Spinal stenosis, lumbar region without neurogenic claudication; M47.816 Spondylosis without myelopathy or radiculopathy, lumbar region; G62.9 Polyneuropathy, unspecified | CPT/HCPCS: 99213 ==

== ENCOUNTER → 2020-12-21 14:50 | Outpatient (BNVA) | payer MEDICARE, SELFPAY | PROVIDERS: PCP Family Medicine; Visit Provider Anesthesiology Pain Medicine | DX: G89.29 Other chronic pain (principal); M54.16 Radiculopathy, lumbar region; M48.061 Spinal stenosis, lumbar region without neurogenic claudication; M47.816 Spondylosis without myelopathy or radiculopathy, lumbar region; M47.12 Other spondylosis with myelopathy, cervical region; M54.12 Radiculopathy, cervical region; M47.812 Spondylosis without myelopathy or radiculopathy, cervical region; M79.601 Pain in right arm; M79.602 Pain in left arm; M79.604 Pain in right leg; M79.605 Pain in left leg; F17.210 Nicotine dependence, cigarettes, uncomplicated | CPT/HCPCS: 99213 ==

== ENCOUNTER → 2021-01-12 10:43 | Outpatient (BNVA) | payer MEDICARE, SELFPAY | PROVIDERS: PCP Family Medicine; Visit Provider Family Medicine | DX: I10 Essential (primary) hypertension (principal); E78.5 Hyperlipidemia, unspecified | CPT/HCPCS: 80053; 80061; 85025 ==

== ENCOUNTER → 2021-03-15 13:12 | Outpatient (BNVA) | payer MEDICARE, SELFPAY | PROVIDERS: PCP Family Medicine; Visit Provider Anesthesiology Pain Medicine | DX: G89.29 Other chronic pain (principal); M54.16 Radiculopathy, lumbar region; M48.061 Spinal stenosis, lumbar region without neurogenic claudication; M47.816 Spondylosis without myelopathy or radiculopathy, lumbar region; M47.12 Other spondylosis with myelopathy, cervical region; M54.12 Radiculopathy, cervical region; M47.812 Spondylosis without myelopathy or radiculopathy, cervical region; M79.601 Pain in right arm; M79.602 Pain in left arm; M79.604 Pain in right leg; M79.605 Pain in left leg; Z98.1 Arthrodesis status | CPT/HCPCS: 99214 ==

== ENCOUNTER → 2021-03-27 10:56 | Outpatient (BNVA) | payer MEDICARE, SELFPAY | PROVIDERS: PCP Family Medicine; Visit Provider Orthopaedic Surgery | DX: M47.12 Other spondylosis with myelopathy, cervical region (principal); M54.2 Cervicalgia | CPT/HCPCS: 72050 ==

== ENCOUNTER 2021-04-03 | Outpatient (CLI) | payer MEDICARE, SELFPAY | END 2021-04-03 00:01 | disposition home or self-care (01) | LOC: RAD 08-28 12:53 | PROVIDERS: PCP Family Medicine; Visit Provider Family Medicine | DX: Z01.818 Encounter for other preprocedural examination (principal); R10.32 Left lower quadrant pain | CPT/HCPCS: 80053; 81000; 85025 ==

== ENCOUNTER → 2021-04-18 14:46 | Outpatient (BNVA) | payer MEDICARE, SELFPAY | PROVIDERS: PCP Family Medicine; Visit Provider Orthopaedic Surgery | DX: Z20.822 Contact with and (suspected) exposure to COVID-19 (principal) | CPT/HCPCS: 87635 ==

== ENCOUNTER 2021-04-23 16:37 | Inpatient (IN) | payer MEDICARE, SELFPAY ==
--- NOTE | 2021-04-18 13:23 | ECG_ITS ---
[facility] Test Date: 2021-04-18 Pat Name: Ezra Pickering Department: Room: Gender: Male Stem Assembler: : 1965 Requested By: Bruce Garduno Order Number: [id number] Boyle MD: Xiao Hinds M.D. Measurements Intervals [place] Rate: 111 P: 71 MD: 149 QRS: 72 QRSD: 73 T: 72 QT: 306 QTc: 417 Interpretive Statements SINUS TACHYCARDIA POSSIBLE LEFT ATRIAL ENLARGEMENT [-0.1mV P-WAVE IN V1/V2] Compared to ECG 11/15/2017 06:44:42 Sinus bradycardia no longer present Electronically Signed On 04-18-2021 14:43:53 CENTER REP by Xiao Hinds M.D. [email or web address] [email or web address]/NU/[id number] f
[2021-04-18 13:29] VITALS: BMI 23.6
--- NOTE | 2021-04-18 14:36 | ANES.PREANE2 ---
Pre-Anesthetic Assessment Height/Weight: Height 1.75 m Weight 72.575 kg Preop Diagnosis: Abnormal stress test chest pain, shortness of breath Operation Date: 04/23/21 10:50 Proposed Procedures p Cervical Posterior Fusion C2-T2 01475/56995 X5/82872 X2/05140 X4/63593(Not Applicable) - Dickmichel Scherer, DO s Cervical Decompression C3,C4,C5,C7(Not Applicable) - Dick H Niesha, DO Was Beta Collin taken within 24 hours: Yes Was Clonidine taken within 24 hours: N/A Social Tobacco and No alcohol Exam alert, oriented x 3, clear to auscultation bilaterally and regular rate & rhythm Airway Submandibular: within normal limits Cervical ROM: Other (Limited) Mallampati: Class II Comments: Comments: Missing teeth Pulmonary None reported CV/HEM Arrythmia, Coronary Artery Disease and Hypertension METS = 4 Hx of CAD Nuc Med Study ?IMPRESSIONS 07/2020 ?1. Small sized reversible sized perfusion abnormality of mild severity of ?apical lateral and apical chi. ?2. This may represent small area of ischemia in left anterior descending artery ?territory. ?3. Overall left ventricular systolic function is normal without regional wall ?motion abnormalities. ?4. The left ventricular ejection fraction is normal with a value of 72%. ?5. This appears to be new when compared to stress test dated 02/09/2018. label machine operator note 08/2020 ? 1. There is moderate? coronary artery disease with one vessel disease. ? 2. FFR: After equalizing the distal and proximal pressure of FFR wire proximal to the lesion, proximal LAD lesion was crossed with FFR wire. IV adenosine at rate of 140 mcg/min was started. Patient did not compliant of any symptoms, at then end of two minutes FFR was recorded as 0.93, which is not significant . Recommendations ? * Continue current medical management and risk factor modification. Metabolic None reported Musc/skel Osteoarthritis/DJD Cervical radiculopathy Neuropsych None reported Anesthetic Plan ASA status: 3 (55 year old with CAD disease, HTN, and tobacco dependence. ) Anesthesia: Anesthesia Evaluation and General Other: We discussed risk and benefits of general anesthesia including PONV, sore throat (sometimes severe), corneal abrasion, positioning and peripheral nerve injuries, life threatening allergic reaction, post operative ICU admission requiring prolonged intubation, stroke, heart attack, , and rare incidences of recall. Patient consents to proceed with general anesthesia. Discussed 2 PIV possible arterial line,. Risk of > 500 ml blood loss (7ml/kg in children): No Medications/Allergies Home Medications Medication Instructions Recorded Confirmed Last Taken Type nitroglycerin 0.4 mg sublingual See Rx Instructions .ROUTE 08/22/20 04/18/21 Unknown Rx tablet .COMPLEX #25 tab amitriptyline 50 mg tablet 50 mg PO DAILY 30 Days #30 tab MDD 11/23/20 04/18/21 Unknown Rx 1 amlodipine 10 mg tablet 10 mg PO DAILY #90 tab 01/12/21 04/18/21 Unknown Rx metoprolol tartrate 50 mg tablet 50 mg PO BID #180 tab 01/12/21 04/18/21 Unknown Rx atorvastatin 40 mg tablet 40 mg PO DAILY 90 Days #90 tab 01/15/21 04/18/21 Unknown Rx cyclobenzaprine 10 mg tablet 10 mg PO TID PRN #60 tab 03/15/21 04/18/21 Unknown Rx gabapentin 800 mg tablet 800 mg PO TID #90 tab 03/15/21 04/18/21 Unknown Rx meloxicam 15 mg tablet 15 mg PO DAILY #30 tab 03/15/21 04/18/21 Unknown Rx Allergies Allergy/AdvReac Type Severity Reaction Status Date / Time divalproex sodium Allergy ADR-Nausea Verified 04/18/21 13:17 [From Depakote] methadone Allergy RASH Verified 04/18/21 13:17 Penicillins Allergy RASH Verified 04/18/21 13:17 quetiapine [From Seroquel] Allergy RASH Verified 04/18/21 13:17 [facility] Anesthesia Medical History Benign essential HTN Hyperlipidemia PAD (peripheral artery disease) Surgical History History of lumbar fusion S/p bilateral carpal tunnel release S/P excision of lipoma (06/08/20) left upper back S/P right knee surgery Status post left inguinal hernia repair Family History Mother No problems noted. Father , Had a pacemaker and defibrillator for 26 yeas Congestive heart failure Social History Smoking and tobacco status: current every day smoker Alcohol intake: never History of recent travel: No Data Anesthesia Cardiac Studies: Sestamibi Stress Test (Cardiology) 07/10/20
[2021-04-23] VITALS (17 sets, daily range): BP systolic 89–163; BP diastolic 57–107; PULSE 72–115; RESP 16–20; TEMP 36.2–37.2; O2SAT 92–98; BMI 22.8
--- NOTE | 2021-04-23 | SCC_ITS ---
Procedure: 1.? C2-CT2 posterior spine fusion 2. C2-CT2 instrumentation 3. C3 laminectomy with bilateral partial facetectomies 4. C4 laminectomy with bilateral? partial facetectomies 5. C5 laminectomy with bilateral partial facetectomies 6. C6 laminectomy with bilateral partial facetectomies 7. C7 laminectomy with bilateral partial facetectomies 6. use of autograft 7. use of allograft 38 seconds of fluoroscopic guidance, for a cumulative dose of 4.17 mGy, was provided to Dr. Scheerr by the radiology department. C-arm images of the cervical spine were saved for the patient's permanent record. [facility] CENTERGertrude
--- NOTE | 2021-04-23 | XR_ITS ---
WS: [id number] Exam: XR cervical spine 1Vport [id number] Date/Time of Exam: 04/23/2021 12:00 AM Reason For Exam: ARJUN PICS A single AP C-arm intraoperative image of the mid and lower cervical spine and upper T-spine is submi tted for evaluation. There are multiple pedicle screws within the mid and lower cervical vertebra as well as the upper tho racic vertebra. An anterior plate is also noted in the region of the mid and lower cervical spine wit h disc spacers. 3 disc spacers are visualized. There are surgical retractors in place. No other signi ficant finding on this limited study.
[2021-04-23] MEDS: sodium chloride 0.9% 1,000 ML 30 ML IV (10:16)
--- NOTE | 2021-04-23 10:27 | ANES.PAUD2 ---
Pre-Anesthetic Update Pre-Anesthetic Assessment: Date of Surgery/Procedure: 04/23/21 Preop Diagnosis: cervical spondylosis with myelopathy Proposed Procedure: Operation Date: 04/23/21 10:50 Proposed Procedures p Cervical Posterior Fusion C2-T2 15503/87295 X5/18984 X2/57960 X4/75124(Not Applicable) - Dickmichel Scherer, DO s Cervical Decompression C3,C4,C5,C7(Not Applicable) - Dickmichel Scherer, DO Any changes to Pre-Anesthetic Assessment?: No Last Intake: Intake Last Liquid Date 04/22/21 Last Liquid Time 18:00 Last Solid Date 04/22/21 Last Solid Time 18:00 Vitals: Temperature 99.0 F 04/23/21 09:37 Temperature Source Temporal Artery S can 04/23/21 09:37 Pulse Rate 77 04/23/21 09:37 Respiratory Rate 18 04/23/21 09:37 Blood Pressure 163/107 04/23/21 09:37 Blood Pressure Nan n 125 04/23/21 09:37 Pulse Oximetry 96 04/23/21 09:37 Oxygen Delivery Me thod 04/23/21 09:48 Exam: Pre-Anes Outpt Exam: alert, oriented x 3, clear to auscultation bilaterally and regular rate & rhythm Cardiac Studies: Sestamibi Stress Test (Cardiology) 07/10/20
--- NOTE | 2021-04-23 11:23 | W.PM.OPSUD ---
Surgery/Procedure H&P Update DATE OF PROCEDURE: April 23, 2021 DATE H&P PERFORMED: 03/27/21 H&P UPDATE INFORMATION: I have reviewed H&P completed within last 30 days, I have examined patient prior to procedure and No changes to prior documentation PREOP DIAGNOSIS: cervical spondylosis with myelopathy PLANNED PROCEDURE: Operation Date: 04/23/21 10:50 Proposed Procedures p Cervical Posterior Fusion C2-T2 23350/01243 X5/95314 X2/74865 X4/98345(Not Applicable) - Dick Scherer DO s Cervical Decompression C3,C4,C5,C7(Not Applicable) - Dick Scherer DO
[2021-04-23] MEDS: clindamycin 900 MG/50 ML PREMIX 100 MG IV (12:05)
[2021-04-23] MEDS: vancomycin 1,000 MG SDV 1000 MG XX (13:04)
--- NOTE | 2021-04-23 15:46 | PM.OP ---
Operative Report Date of procedure: April 23, 2021 Pre-op diagnosis: Preop Diagnosis cervical spondylosis with myelopathy Procedure: 1.? C2-CT2 posterior spine fusion 2. C2-CT2 instrumentation 3. C3 laminectomy with bilateral partial facetectomies 4. C4 laminectomy with bilateral? partial facetectomies 5. C5 laminectomy with bilateral partial facetectomies 6. C6 laminectomy with bilateral partial facetectomies 7. C7 laminectomy with bilateral partial facetectomies 6. use of autograft 7. use of allograft Patient was brought to the operative suite after undergoing anesthesia was placed into the prone position all areas of impingement were well-padded.? Patient was then prepped and draped normal sterile fashion.? Skin incision is made from C2 down to T2.? Subperiosteal dissection was made from C2-T2 down to the spinous processes and out to the lateral masses.? Retractors were placed.? Pars screws were placed at C2 using C arm guidance.? And then lateral mass screws were placed at C3 bilaterally C4 bilaterally C5 bilaterally and C6 bilaterally. Pedicle screws were placed at T1 and T2 bilaterally.? The technique for placing the lateral mass screws or to use a drill was measured to be 12 mm then 14 mm screws were placed.? The screws were all 14's were Jourdan screws.? The pedicle screws were then placed at T1 and T2 bilaterally using the drill these were 32 mm Jourdan screws. They were confirmed under C-arm guidance. Once the screws were placed attention was then brought to the laminectomies.? A laminectomy was performed using high-speed bur and #2 Kerrison.? Laminectomy was done bilaterally at C7 and partial facetectomies at C6-7 were performed bilaterally. This was done using the high-speed bur and the Kerrison rongeurs. Next this was repeated at the C6 level. Again using high-speed bur Kerrison and curved curettes. The ligamentum flavum was taken up. This was done bilaterally at C5.? And then a partial facetectomy was done bilaterally using the #2 Kerrison.? To take down the superior and inferior articular processes bilaterally.? As well as ligamentum flavum.? Next tension was brought to the C4 level.? The high-speed bur was used to perform laminectomies bilaterally and then the partial facetectomies were done using a #2 Kerrison bilaterally.? This process was then repeated at C3 using again the high-speed bur bilaterally in the lamina to perform laminectomy the laminectomy was removed and then partial facetectomies were done at the C2/3 facets.? Nerve roots were palpated with a small curved curette in order to ensure that they are not compressed.? Once all the C3-C4 and C5 and C6 and C7 laminectomies were completed and partial facetectomies attention was then brought to placing the rods. The head turn was used to align the screws.? The owen was bent to the appropriate size.? A size 120 mm owen was placed and end caps were placed on the C2,C3, C4, C5, C6 T1 and T2 screws bilaterally.? Rods were locked into place bilaterally next attention was brought to decorticating the bone.? This was done with a high-speed bur on the lateral gutters as well as in the facet joints.? And OsteoMed bone graft with allograft bone from the laminectomies were packed into the lateral gutters bilaterally.? Next attention was brought to wound was irrigated and then the deep drain was placed wound was closed in layered fashion with 0 Vicryl 2-0 Vicryl nylon suture.? Sterile dressing was applied patient was placed in cervical collar flipped into the supine position.? And transferred to the PACU in stable condition.
--- NOTE | 2021-04-23 17:00 | ANE.PACU2 ---
Inpatient post-anesthesia follow up: Airway intact: Yes Vital signs: Temperature 98.7 F Pulse Rate 114 Respiratory Rate 19 Blood Pressure 134/84 Pulse Oximetry 95 Oxygen Delivery Me thod Room Air Oxygen Flow Rate 6 Fraction of Inspir ed Oxygen Hydration adequate: Yes Nausea and vomiting: No Pain level: 4 Mental status: Baseline
[2021-04-23] MEDS: lactated ringers 1,000 ML 90 ML IV (17:15)
[2021-04-23] MEDS: HYDROcodone-acetaminophen 5-325 mg Tablet PO (18:28)
[2021-04-23] MEDS: cyclobenzaprine 10 mg Tablet PO (19:52)
[2021-04-23] MEDS: ketorolac 30 mg/mL INJ IVP (19:52)
[2021-04-23] MEDS: gabapentin 400 mg Capsule 800 MG PO (20:35)
[2021-04-23] MEDS: morphine 4 mg/mL SDV 1 mL 2 MG IVP (22:43)
[2021-04-24] MEDS: HYDROcodone-acetaminophen 5-325 mg Tablet PO ×2 (01:04→08:18)
[2021-04-24 04:00] VITALS: BP 134/84; PULSE 114; RESP 19; TEMP 37.1; O2SAT 95
[2021-04-24] MEDS: lactated ringers 1,000 ML 90 ML IV (04:02)
[2021-04-24 08:00] VITALS: BP 154/98; PULSE 123; RESP 18; TEMP 37; O2SAT 98
[2021-04-24] MEDS: meloxicam 7.5 mg tablet 15 MG PO (08:17)
[2021-04-24] MEDS: atorvastatin 40 mg Tablet PO (08:17)
[2021-04-24] MEDS: gabapentin 400 mg Capsule 800 MG PO (08:17)
[2021-04-24] MEDS: amitriptyline 25 mg Tablet 50 MG PO (08:17)
[2021-04-24] MEDS: amlodipine 10 mg Tablet PO (08:18)
[2021-04-24] MEDS: metoprolol tartrate 50 mg Tablet PO (08:18)
--- NOTE | 2021-04-24 10:24 | PC.NURSE ---
THIS NURSE REMOVED PATIENT'S HEMOVAC. DRESSING REAPPLIED. TOLERATED WELL.
[2021-04-24 12:17] VITALS: BP 154/98; PULSE 123; RESP 18; TEMP 37; O2SAT 98
--- NOTE | 2021-04-24 12:18 | PC.NURSE ---
Discharge teaching and education given to patients and , all questions were answered at this time. Hemavac discontinued. IV removed. Medications sent to patients local pharmacy.
--- NOTE | 2021-04-25 11:16 | P.DS_ITS ---
Discharge Providers Date of Admission: 04/23/21 16:37 Date of Discharge: April 24, 2021 Attending Provider at Admission: Dick Scherer DO Attending Provider at Discharge: Dick Scherer DO Primary Care Provider: Daphney Celestin DO Reason for Visit Reason for Visit: CERVICAL SPONDYLOSIS WITH MYELOPATHY Hospital Course Hospital Course uneventful Physical Exam Urinary Catheter Management: Egan: Cath Placed During This Visit: yes, but has since been removed by the nurse Reason for Continuing Indwelling Catheter: Not indwelling catheter Urinary Catheter Date of Insertion: 04/23/21 Urinary Catheter Time of Insertion: 12:30 Date Urinary Catheter Removed: 04/23/21 Time Urinary Catheter Discontinued: 20:00 Discharge Data Studies Completed and Pending Completed Studies During Hospitalization Category Date Time Status XR cervical spine 1Vport [id number] Routine Exams 04/23/21 Completed Vitals Last Vital Signs Temp 98.6 F 04/24/21 12:17 Pulse 123 H 04/24/21 12:17 Resp 18 04/24/21 12:17 BP 154/98 04/24/21 12:17 Pulse Ox 98 04/24/21 12:17 Discharge Plan Discharge Patient Disposition: Home Condition: Stable Prescriptions: New hydrocodone-acetaminophen 5-325 mg tablet 1 tab PO Q4H Qty: 40 0RF Continued amitriptyline 50 mg tablet 50 mg PO DAILY MDD 1 30 Days Qty: 30 1RF amlodipine 10 mg tablet 10 mg PO DAILY Qty: 90 0RF metoprolol tartrate 50 mg tablet 50 mg PO BID Qty: 180 1RF meloxicam 15 mg tablet 15 mg PO DAILY Qty: 30 2RF cyclobenzaprine 10 mg tablet 10 mg PO TID PRN (Reason: muscle spasm) Qty: 60 2RF gabapentin 800 mg tablet 800 mg PO TID Qty: 90 2RF nitroglycerin 0.4 mg tablet, sublingual See Rx Instructions .ROUTE .COMPLEX Qty: 25 3RF Dose Instruction: DISSOLVE 1 TABLET UNDER THE TONGUE EVERY 5 MINUTES NEEDED FOR CHEST PAIN. DO NOT EXCEED 3 DOSES PER EPISODE Rx Instructions: DISSOLVE 1 TABLET UNDER THE TONGUE EVERY 5 MINUTES NEEDED FOR CHEST PAIN. DO NOT EXCEED 3 DOSES PER EPISODE atorvastatin 40 mg tablet 40 mg PO DAILY 90 Days Qty: 90 1RF Discharge Orders: Discharge Order (Routine); Ordered 04/24/21 Ordered By: Raphael Mcgee Referrals: Dick Scherer DO [Physician] - 05/08/21 1:15 pm Discharge Diet: Advance as tolerated Patient Instructions: Hydrocodone/Acetaminophen (By mouth), Cervical Spinal Stenosis (GEN), Opioid Safety Activity Restrictions/Additional Instructions: Thank you for choosing [facility] for your care! The following is a list of instructions, from your provider, to follow upon your discharge to ensure you have the optimal recovery from your recent injury or surgery. Follow-up care is a newby part of your treatment and safety. Be sure to make and go to all appointments and call your doctor if you are having problems. If you do not already have a follow-up appointment made, call Dr. Scherer's] office in the next 1-3 days to make follow up appointment for [1-2] weeks at [phone]. It is also a good idea to know your test results and keep a list of the medicines you take. Medications will be prescribed for you at your provider's discretion. These medications are to be used as instructed; if they are taken more often that prescribed they will not be refilled early and in most cases will not be refilled at all. > When a refill is needed, you should contact ledy montalvo 2-3 business days before your prescription runs out. Medications will NOT be refilled by licensed professional counselor providers after hours! > Many pain medications contain Tylenol (Acetaminophen). Do not consume more than 4,000 mg of Tylenol per day in total with any combination of medications. > Pain medications can cause constipation. Please use an over the counter stool softener as directed, while taking pain medications. Consult your local pharmacist with questions or recommendations on stool softeners. If constipation persists, contact our office or your primary care provider. > While under our care, you are not to receive pain medications or other controlled substances from any other provider unless our office is notified and approves. Any attempts to do so will result in refusal to prescribe any further pain medications and possible dismissal from our practice. ? Walking is essential for the healing process after surgery. We would like you to slowly advance your walking. This should be done on relatively flat clear ground (inside or out) or can be done on a treadmill. Remember this goal does not have to happen all at once, slowly increase your distance and duration. This can be broken into more more than one walk per day as tolerated. Patients who walk as directed after surgery rarely require Physical Therapy. In the unlikely event this issue arises your provider will direct hospital staff to make the appropriate arrangements. ? No lifting over 5 pounds {a gallon of milk) or bending/twisting until further notice. Each of these activities places an unnecessary amount of stress onto the body and can impede the delicate healing process. > Instead of bending at the waist, keep your back straight and bend at the knees. > Instead of twisting your torso, keep your back straight and turn your entire body with your feet. ? You may sleep in any position which makes you comfortable. Many patients find comfort sleeping in a reclining chair. It is not abnormal to have difficulty sleeping for the first several weeks following your surgery. We recommend trying Benadry! or Tylenol PM as directed to help with your sleeping difficulties. Both medications are over the counter and available without prescription. ? NO SMOKING!!! Smoking dramatically increases the probability of developing postoperative wound infections. ? Common complaints after lumbar and/or thoracic spine surgery include, but are not limited to: numbness and/or tingling in the legs, pain around the incision and surrounding tissues, muscle spasms, or stiffness of the middle to low back. Contact our office if these symptoms persist or if an acute change occurs. ? No driving for the first 3-5days, and not while taking narcotics until seen at your follow-up appointment and cleared. There are no restrictions for riding on short trips, however if you take a longer trip, arrangements should be made to make regular stops to get out of the vehicle and stretch . ? Swelling is an unfortunate event that will take place with any surgery and is the primary source of your postoperative discomfort. While walking and regular approved activities helps control inflammation, there are additional steps you can take to minimize swelling. > Place ice over the surgical site and surrounding tissue for twenty minutes, followed by applying a low/medium heat (heating pad) for an additional twenty minutes every 1-2 hours as needed for painrelief. > You may use of over the counter anti-inflammatory medications (Ibuprofen, Motrin, Aleve, Advil, etc) as directed on the package label. These types of medicines will significantly reduce the amount of discomfort you experience after surgery from swelling. It should be noted that if you have and allergy to any of these medications, or a history of ulcers or kidney disease you should consult you primary care provider prior to starting these medications. Discharge Attestations Time Spent in Discharge Care*: less than 30 min Quality Metrics Clinical Quality Measures [ No reported AMI, CVA or VTE this stay] Coding Level of Care Code Acute g [facility] note
== END 2021-04-24 12:43 | disposition home or self-care (01) | DRG 460 ==
LOC: MEDSURG 16:42
PROVIDERS: Admitting Provider Orthopaedic Surgery; PCP Family Medicine; Visit Provider Orthopaedic Surgery
PROC: 0RG2071 Fusion of 2 or more Cervical Vertebral Joints with Autologous Tissue Substitute, Posterior Approach, Posterior Column, Open Approach (ICD-10-PCS; CPT 22600; principal; 2021-04-23 10:40)
PROC: 0RG2071 Fusion of 2 or more Cervical Vertebral Joints with Autologous Tissue Substitute, Posterior Approach, Posterior Column, Open Approach (ICD-10-PCS; CPT 63001; 2021-04-23 10:40)
DX: M47.12 Other spondylosis with myelopathy, cervical region (principal); I10 Essential (primary) hypertension; E78.5 Hyperlipidemia, unspecified; I73.9 Peripheral vascular disease, unspecified; F17.200 Nicotine dependence, unspecified, uncomplicated
CPT/HCPCS: 51702; 72020; 76000; 93005; 97110; 97760; C1713; C1776; J0330; J0690; J1100; J1170; J1200; J1885; J2250; J2270; J2405; J2704; J2710; J3010; J3370; J3490; J7030; L0174

== ENCOUNTER → 2021-05-29 08:35 | Outpatient (BNVA) | payer MEDICARE, SELFPAY | PROVIDERS: PCP Family Medicine; Visit Provider Physician Assistant | DX: M47.12 Other spondylosis with myelopathy, cervical region (principal) | CPT/HCPCS: 72040 ==

== ENCOUNTER → 2021-07-10 09:22 | Outpatient (BNVA) | payer MEDICARE, SELFPAY | PROVIDERS: PCP Family Medicine; Visit Provider Physician Assistant | DX: Z47.89 Encounter for other orthopedic aftercare (principal); Z98.890 Other specified postprocedural states; Z98.1 Arthrodesis status | CPT/HCPCS: 72040; 99213; 99999 ==

== ENCOUNTER → 2021-07-12 13:51 | Outpatient (BNVA) | payer MEDICARE, SELFPAY | PROVIDERS: PCP Family Medicine; Visit Provider Anesthesiology Pain Medicine | DX: M79.18 Myalgia, other site (principal); M47.12 Other spondylosis with myelopathy, cervical region; M54.12 Radiculopathy, cervical region; M47.812 Spondylosis without myelopathy or radiculopathy, cervical region; M54.16 Radiculopathy, lumbar region; M48.061 Spinal stenosis, lumbar region without neurogenic claudication; M47.816 Spondylosis without myelopathy or radiculopathy, lumbar region; F17.210 Nicotine dependence, cigarettes, uncomplicated; Z79.891 Long term (current) use of opiate analgesic | CPT/HCPCS: 20553; 99214; J1030; J3490 ==

== ENCOUNTER → 2021-08-09 13:55 | Outpatient (BNVA) | payer MEDICARE, SELFPAY | PROVIDERS: PCP Family Medicine; Visit Provider Anesthesiology Pain Medicine | DX: M54.16 Radiculopathy, lumbar region (principal); M48.061 Spinal stenosis, lumbar region without neurogenic claudication; M47.816 Spondylosis without myelopathy or radiculopathy, lumbar region; M47.12 Other spondylosis with myelopathy, cervical region; M54.12 Radiculopathy, cervical region; M47.812 Spondylosis without myelopathy or radiculopathy, cervical region; M79.601 Pain in right arm; M79.602 Pain in left arm; M79.604 Pain in right leg; M79.605 Pain in left leg; F17.210 Nicotine dependence, cigarettes, uncomplicated; Z79.891 Long term (current) use of opiate analgesic | CPT/HCPCS: 99214 ==

== ENCOUNTER → 2021-09-11 10:51 | Outpatient (BNVA) | payer MEDICARE, SELFPAY | PROVIDERS: PCP Family Medicine; Visit Provider Anesthesiology Pain Medicine | DX: M79.18 Myalgia, other site (principal); M54.16 Radiculopathy, lumbar region; M48.061 Spinal stenosis, lumbar region without neurogenic claudication; M47.816 Spondylosis without myelopathy or radiculopathy, lumbar region; M47.12 Other spondylosis with myelopathy, cervical region; M54.12 Radiculopathy, cervical region; M47.812 Spondylosis without myelopathy or radiculopathy, cervical region; M79.601 Pain in right arm; M79.602 Pain in left arm; M79.604 Pain in right leg; M79.605 Pain in left leg; F17.210 Nicotine dependence, cigarettes, uncomplicated | CPT/HCPCS: 20553; 99213; J1030 ==

== ENCOUNTER → 2021-10-16 14:05 | Outpatient (BNVA) | payer MEDICARE, SELFPAY | PROVIDERS: PCP Family Medicine; Visit Provider Internal Medicine Cardiovascular Disease | DX: I10 Essential (primary) hypertension (principal); I25.10 Atherosclerotic heart disease of native coronary artery without angina pectoris; F17.219 Nicotine dependence, cigarettes, with unspecified nicotine-induced disorders | CPT/HCPCS: 99214 ==

== ENCOUNTER → 2021-10-22 11:28 | Outpatient (BNVA) | payer MEDICARE, SELFPAY | PROVIDERS: PCP Family Medicine; Visit Provider Surgery | DX: R10.32 Left lower quadrant pain (principal) | CPT/HCPCS: 99213 ==

== ENCOUNTER → 2021-10-25 11:39 | Outpatient (BNVA) | payer MEDICARE, SELFPAY | PROVIDERS: PCP Family Medicine; Visit Provider Orthopaedic Surgery | DX: M54.2 Cervicalgia (principal); Z98.1 Arthrodesis status | CPT/HCPCS: 72040; 99213; 99214 ==

== ENCOUNTER → 2021-11-06 10:32 | Outpatient (BNVA) | payer MEDICARE, SELFPAY | PROVIDERS: PCP Family Medicine; Visit Provider Anesthesiology Pain Medicine | DX: M47.12 Other spondylosis with myelopathy, cervical region (principal); M47.812 Spondylosis without myelopathy or radiculopathy, cervical region; M54.12 Radiculopathy, cervical region; M54.16 Radiculopathy, lumbar region; M48.061 Spinal stenosis, lumbar region without neurogenic claudication; M47.816 Spondylosis without myelopathy or radiculopathy, lumbar region; F17.210 Nicotine dependence, cigarettes, uncomplicated; M79.601 Pain in right arm; M79.602 Pain in left arm; M79.604 Pain in right leg; M79.605 Pain in left leg; M79.18 Myalgia, other site | CPT/HCPCS: 20553; 99214; J1030; J3490 ==

== ENCOUNTER 2021-12-04 15:07 | Outpatient (CLI) | payer MEDICARE, SELFPAY ==
--- NOTE | 2021-12-04 16:30 | CT_ITS ---
WS: [id number] CT CERVICAL CONTRAST TECHNIQUE: Contrast-enhanced CT of the cervical spine coronal and sagittal reformatted images CLINICAL INFORMATION: post op pain COMPARISON: MRI March 28, 2020 DLP: 474.[address] scans at [facility] use at least one of these dose optimization techniques: automated e xposure control; mA and/or kV adjustment per patient size (includes targeted exams where dose is matc hed to clinical indication); or iterative reconstruction. FINDINGS: Images degraded by motion artifact and beam Knowles artifact from hardware. Exam is somewha t limited. Straightening of the normal cervical lordosis. Postoperative changes ACDF C3-C6. Dorsal element fusio n C2-T2. Dorsal interconnecting rods intact.Slight anterolisthesis C7 on T1. Mild compression superio r endplate T1.Fracture of the RIGHT C6 anterior fixation screw. No evidence of hardware loosening. Mastoid air cells well aerated. Lung apices are well aerated. Decompressive laminectomies C2 through C7. No significant central canal stenosis. CT/CT cervical spine w con [id number] IMPRESSION: Images degraded by motion artifact and beam Knowles artifact from h ardware. Exam is somewhat limited. 1. Fracture of the RIGHT C6 anterior fixation screw with step off best visuali zed on the sagittal imaging. This is also seen on the prior radiograph October [id number] 2. Suggestion of slight mild compression superior endplate T1. 3. Prior postoperative changes ACDF C3-C6. 4. Posterior element fusion with instrumentation C2-T2. 5. Decompressive laminectomy C2-C7. No significant central canal stenosis. 6. No evidence of drainable abscess or fluid collection considering artifact. 7. Slight anterolisthesis C7 on T1.
[2021-12-04] MEDS: iohexol 350 mg/mL 100 mL Btl IV (16:39)
== END 2021-12-04 15:08 | disposition home or self-care (01) ==
PROVIDERS: PCP Family Medicine; Visit Provider Orthopaedic Surgery
DX: M54.16 Radiculopathy, lumbar region (principal); M48.061 Spinal stenosis, lumbar region without neurogenic claudication; M47.816 Spondylosis without myelopathy or radiculopathy, lumbar region; M47.12 Other spondylosis with myelopathy, cervical region; M54.12 Radiculopathy, cervical region; M47.812 Spondylosis without myelopathy or radiculopathy, cervical region; M79.601 Pain in right arm; M79.602 Pain in left arm; M79.605 Pain in left leg; M79.604 Pain in right leg; F17.210 Nicotine dependence, cigarettes, uncomplicated; G89.18 Other acute postprocedural pain; Z98.890 Other specified postprocedural states
CPT/HCPCS: 72126; 99214

== ENCOUNTER 2021-12-04 15:20 | Outpatient (CLI) | payer MEDICARE, SELFPAY ==
--- NOTE | 2021-12-04 16:00 | CT_ITS ---
WS: [id number] CT ABDOMEN PELVIS TECHNIQUE: Contrast-enhanced CT of the abdomen and pelvis with coronal and sagittal reformatted image s. CLINICAL INFORMATION: abdominal pain/hx of lap inguina hernia repair COMPARISON: CT 10 DLP: 931.[address] scans at [facility] use at least one of these dose optimization techniques: automated e xposure control; mA and/or kV adjustment per patient size (includes targeted exams where dose is matc hed to clinical indication); or iterative reconstruction. FINDINGS: Calcified granuloma RIGHT lower lobe. Normal portal vein and splenic vein. Normal spleen. Normal GE j unction. Adrenal glands are normal. Normal renal parenchymal enhancement. No hydronephrosis. Normal pancreatic parenchymal enhancement. Normal portal vein and splenic vein. Calcified prominent prostate measuring 3.4 x 3.7 CM. Normal sigmoid colon. Normal appendix in the RIG HT lower quadrant. Celiac and SMA are patent. Normal caliber abdominal aorta. CT/CT abdomen pelvis w con* [id number] IMPRESSION: 1. No acute findings in the abdomen or pelvis. 2. Normal renal parenchymal enhancement hydronephrosis in either kidney. 3. Fat-containing umbilical hernia. 4. Anterior lumbar fusion with interbody fusion L5-S1.
[2021-12-04] MEDS: iohexol 350 mg/mL 100 mL Btl PO (16:38)
[2021-12-04] MEDS: iohexol 350 mg/mL 100 mL Btl IV (16:38)
== END 2021-12-04 15:21 | disposition home or self-care (01) ==
PROVIDERS: PCP Family Medicine; Visit Provider Surgery
DX: R10.32 Left lower quadrant pain (principal); K42.9 Umbilical hernia without obstruction or gangrene; Z98.1 Arthrodesis status
CPT/HCPCS: 74177

== ENCOUNTER → 2021-12-25 10:15 | Outpatient (BNVA) | payer MEDICARE, SELFPAY | PROVIDERS: PCP Family Medicine; Visit Provider Surgery | DX: Z09 Encounter for follow-up examination after completed treatment for conditions other than malignant neoplasm (principal); R10.32 Left lower quadrant pain | CPT/HCPCS: 99213 ==

== ENCOUNTER → 2021-12-27 08:10 | Outpatient (BNVA) | payer MEDICARE, SELFPAY | PROVIDERS: PCP Family Medicine; Visit Provider Physician Assistant | DX: M54.2 Cervicalgia (principal); Z98.1 Arthrodesis status | CPT/HCPCS: 72040; 99213 ==

== ENCOUNTER → 2022-01-03 12:41 | Outpatient (BNVA) | payer MEDICARE, SELFPAY | PROVIDERS: PCP Family Medicine; Visit Provider Anesthesiology Pain Medicine | DX: G89.29 Other chronic pain (principal); M54.16 Radiculopathy, lumbar region; M48.061 Spinal stenosis, lumbar region without neurogenic claudication; M47.816 Spondylosis without myelopathy or radiculopathy, lumbar region; M54.12 Radiculopathy, cervical region; M47.812 Spondylosis without myelopathy or radiculopathy, cervical region; M47.12 Other spondylosis with myelopathy, cervical region; S12.9XXA Fracture of neck, unspecified, initial encounter; X58.XXXA Exposure to other specified factors, initial encounter; F17.210 Nicotine dependence, cigarettes, uncomplicated | CPT/HCPCS: 99214 ==

== ENCOUNTER 2022-02-15 08:02 | Outpatient (CLI) | payer MEDICARE, SELFPAY ==
--- NOTE | 2022-02-15 08:08 | NM_ITS ---
WS: [email or web address] NUCLEAR MEDICINE BONE SCAN Radiopharmaceutical: 23.9 Tc-99m MDP mCi IV Injection site: LEFT antecubital Postinjection imaging delay: 1 hr CLINICAL INFORMATION: pain COMPARISON: December 07, 2008 FINDINGS: Prior postoperative changes ACDF C3-C6 with posterior dorsal instrumentation C2 extending t o the upper thoracic spine on the prior radiograph December 27, 2021 Bony uptake in the lower cervical spine at approximately C6-T1 and more prominent anteriorly. Finding s are nonspecific but can be seen with bony remodeling from recent effusion versus infection/osteomye litis versus instability. Bone lesions: There are no osseous lesions suspicious for metastatic disease. Soft tissue contours: Normal. Kidneys: Normal. Other findings: Degenerative uptake both AC joints and sternoclavicular joints. NM/NM bone scan whole body* [id number] IMPRESSION: Bony uptake in the lower cervical spine as described above approximately C6-T1 anteriorly. Findings are nonspecific but can be seen with bony remodeling from recent hardware placement, versus infection versus instability. Recommend corre lation with clinical symptoms. This can be further evaluated with contrast-enha nced CT cervical spine.
== END 2022-02-15 08:03 | disposition home or self-care (01) ==
PROVIDERS: PCP Family Medicine; Visit Provider Physician Assistant
DX: Z98.1 Arthrodesis status (principal)
CPT/HCPCS: 78306; A9561

== ENCOUNTER → 2022-03-07 08:21 | Outpatient (BNVA) | payer MEDICARE, SELFPAY | PROVIDERS: PCP Family Medicine; Visit Provider Physician Assistant | DX: M54.2 Cervicalgia (principal); G89.29 Other chronic pain; Z98.1 Arthrodesis status; R25.2 Cramp and spasm | CPT/HCPCS: 99213 ==

== ENCOUNTER → 2022-04-04 12:43 | Outpatient (BNVA) | payer MEDICARE, SELFPAY | PROVIDERS: PCP Family Medicine; Visit Provider Anesthesiology Pain Medicine | DX: G89.29 Other chronic pain (principal); M54.16 Radiculopathy, lumbar region; M48.061 Spinal stenosis, lumbar region without neurogenic claudication; M47.816 Spondylosis without myelopathy or radiculopathy, lumbar region; M47.12 Other spondylosis with myelopathy, cervical region; M54.12 Radiculopathy, cervical region; M47.812 Spondylosis without myelopathy or radiculopathy, cervical region; M43.6 Torticollis; X58.XXXA Exposure to other specified factors, initial encounter; M79.601 Pain in right arm | CPT/HCPCS: 99214 ==

== ENCOUNTER → 2022-04-11 14:22 | Outpatient (BNVA) | payer MEDICARE, SELFPAY | PROVIDERS: PCP Family Medicine; Visit Provider Family Medicine | DX: I10 Essential (primary) hypertension (principal); E78.5 Hyperlipidemia, unspecified; R35.1 Nocturia; F17.219 Nicotine dependence, cigarettes, with unspecified nicotine-induced disorders | CPT/HCPCS: 80053; 80061; 82043; 84153; 85025 ==

== ENCOUNTER 2022-05-01 06:42 | Outpatient (CLI) | payer MEDICARE, SELFPAY ==
--- NOTE | 2022-05-01 07:00 | CT_ITS ---
WS: [email or web address] LDCT LUNG CANCER SCREENING HISTORY: screening TECHNIQUE: Axial imaging performed from the apices to 1 cm below the costophrenic angles. Coronal and sagittal reformats are submitted with axial MIP series. All CT scans at [facility] use at least one of these dose optimization techniques: automated exposure control; mA and/or kV adjustment per patient size (includes targeted exams where dose is matched to clinical indication); or iterativ e reconstruction. DLP: 76.51 mGy.cm DIvol: Mean CTDIvol: 1.60 (mGy) COMPARISON: 02/03/2007 Diagnostic quality: Satisfactory Lungs: Mild centrilobular emphysema with hyperexpansion. There is a large calcified nodule RIGHT lung base with mean diameter of 2.3 cm. No additional mass or nodules are identified. Minimal linear atel ectasis versus scar in the lingula. Heart: Normal size heart with no pericardial effusion.. Other findings: Heavily calcified benign lymph nodes in the mediastinum and RIGHT hilum. No suspiciou s adenopathy. Normal size aorta. Normal size pulmonary artery. Very minimal coronary artery calcifica tion. Small hiatal hernia. Mild increased thoracic kyphosis. CT/CT lung screening [id number] IMPRESSION: LUNG-RADS: 2-Benign Appearance or Behavior FOLLOW UP: 12 Month: Continue annual screening with LDCT OTHER FINDINGS (S MODIFIER): None.
== END 2022-05-01 06:43 | disposition home or self-care (01) ==
LOC: RAD 06:42
PROVIDERS: PCP Family Medicine; Visit Provider Family Medicine
DX: Z12.2 Encounter for screening for malignant neoplasm of respiratory organs (principal); F17.219 Nicotine dependence, cigarettes, with unspecified nicotine-induced disorders
CPT/HCPCS: 71271

== ENCOUNTER → 2022-06-17 09:08 | Outpatient (BNVA) | payer MEDICARE, SELFPAY | PROVIDERS: PCP Family Medicine; Visit Provider Anesthesiology Pain Medicine | DX: G89.29 Other chronic pain (principal); M79.18 Myalgia, other site; M48.061 Spinal stenosis, lumbar region without neurogenic claudication; M54.16 Radiculopathy, lumbar region; M47.816 Spondylosis without myelopathy or radiculopathy, lumbar region; M54.12 Radiculopathy, cervical region; M47.812 Spondylosis without myelopathy or radiculopathy, cervical region; M43.6 Torticollis; M47.12 Other spondylosis with myelopathy, cervical region; X58.XXXA Exposure to other specified factors, initial encounter | CPT/HCPCS: 20553; 99213 ==

== ENCOUNTER 2022-07-23 07:50 | Outpatient (CLI) | payer MEDICARE, SELFPAY ==
--- NOTE | 2022-07-23 07:58 | MR_ITS ---
WS: [id number] MRI CERVICAL SPINE NONCONTRAST HISTORY: HX OF FUSION OF CERVICAL SPINE/CERVICALGIA COMPARISON: Radiographs 12/27/2021, prior MRI 03/28/2020 Technique: Multiplanar, multisequence noncontrast imaging of the cervical spine. Status post anterior posterior cervical fusion. Anterior cervical fusion with interbody spacers from C3 to C6. Posterior fusion hardware vertical rods and facet screws from C2 to the upper thoracic spin e. Signal within the cervical cord is normal. Visualized posterior fossa is unremarkable. Craniocervical junction, C1 and C2 relationship, odontoid process and soft tissues are normal. Quality is degraded by motion and metallic artifact. C2-C3: Normal. C3-C4: No central stenosis. Obscuration of the foramina by artifact. C4-C5: No central stenosis. Foramina not visualized. C5-C6: Central canal is widely patent. Obscuration of the foramina by artifact. C6-C7: Patent central canal. Foramina not visualized by artifact. C7-T1: Normal. Paraspinal soft tissue are normal. MR/MR cervical spin wo con* [id number] IMPRESSION: 1. Study is compromised by artifact from the anterior and posterior cervical f usion hardware and motion. 2. Anterior cervical fusion from C3 to C6 with interbody spacers. 3. Posterior fusion hardware from C2 to the upper thoracic spine. 4. No central canal stenosis. There is significant obscuration of the foramina by artifact from the hardware. Cannot exclude foraminal stenosis or protrusion s.
== END 2022-07-23 07:51 | disposition home or self-care (01) ==
PROVIDERS: PCP Family Medicine; Visit Provider Nurse Practitioner Family
DX: M54.2 Cervicalgia (principal); Z98.1 Arthrodesis status
CPT/HCPCS: 72141

== ENCOUNTER → 2022-08-19 09:15 | Outpatient (BNVA) | payer MEDICARE, SELFPAY | PROVIDERS: PCP Family Medicine; Visit Provider Anesthesiology Pain Medicine | DX: G89.29 Other chronic pain (principal); M47.12 Other spondylosis with myelopathy, cervical region; M47.812 Spondylosis without myelopathy or radiculopathy, cervical region; M54.12 Radiculopathy, cervical region; S12.9XXA Fracture of neck, unspecified, initial encounter; M54.16 Radiculopathy, lumbar region; M48.061 Spinal stenosis, lumbar region without neurogenic claudication; M47.816 Spondylosis without myelopathy or radiculopathy, lumbar region; M43.6 Torticollis; X58.XXXA Exposure to other specified factors, initial encounter | CPT/HCPCS: 99214 ==

== ENCOUNTER → 2022-09-11 12:51 | Outpatient (BNVA) | payer MEDICARE, SELFPAY | PROVIDERS: PCP Family Medicine; Visit Provider Anesthesiology Pain Medicine | DX: G89.29 Other chronic pain (principal); M79.18 Myalgia, other site; S12.9XXA Fracture of neck, unspecified, initial encounter; M54.16 Radiculopathy, lumbar region; M48.061 Spinal stenosis, lumbar region without neurogenic claudication; M47.12 Other spondylosis with myelopathy, cervical region; M54.12 Radiculopathy, cervical region; M47.812 Spondylosis without myelopathy or radiculopathy, cervical region; M47.816 Spondylosis without myelopathy or radiculopathy, lumbar region; M43.6 Torticollis; X58.XXXA Exposure to other specified factors, initial encounter | CPT/HCPCS: 20553; 99213; J1030; J3490 ==

== ENCOUNTER → 2022-09-23 10:16 | Outpatient (BNVA) | payer MEDICARE, SELFPAY | PROVIDERS: PCP Family Medicine; Visit Provider Anesthesiology Pain Medicine | DX: G89.29 Other chronic pain (principal); M47.12 Other spondylosis with myelopathy, cervical region; M54.12 Radiculopathy, cervical region; M47.812 Spondylosis without myelopathy or radiculopathy, cervical region; M54.16 Radiculopathy, lumbar region; M48.061 Spinal stenosis, lumbar region without neurogenic claudication; M47.816 Spondylosis without myelopathy or radiculopathy, lumbar region; M43.6 Torticollis; S12.9XXA Fracture of neck, unspecified, initial encounter; X58.XXXA Exposure to other specified factors, initial encounter | CPT/HCPCS: 99214 ==

== ENCOUNTER → 2022-10-15 16:20 | Outpatient (BNVA) | payer MEDICARE, SELFPAY | PROVIDERS: PCP Family Medicine; Visit Provider Internal Medicine Cardiovascular Disease | DX: R07.9 Chest pain, unspecified (principal) | CPT/HCPCS: 93005; 99214 ==

== ENCOUNTER → 2022-10-23 12:40 | Outpatient (BNVA) | payer MEDICARE, SELFPAY | PROVIDERS: PCP Family Medicine; Visit Provider Anesthesiology Pain Medicine | DX: M43.6 Torticollis (principal); M54.9 Dorsalgia, unspecified | CPT/HCPCS: 64644; J0585 ==

== ENCOUNTER 2022-11-05 08:43 | Outpatient (CLI) | payer MEDICARE, SELFPAY ==
[2022-11-05 09:01] VITALS: BMI 23.6
--- NOTE | 2022-11-05 09:08 | ECG_ITS ---
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 Interpretive Statements NAME OF STUDY: LEXISCAN SESTAMIBI STRESS TEST INDICATION: Chest Pain; Coronary Artery Disease PROCEDURE: At the baseline, the blood pressure was 113/81 mm Hg with a heart rate of 53 bpm. The electrocardiogram showed sinus bradycardia, normal axis with normal ST and T's. ??? The Lexiscan was infused over a period of 20 seconds. A total of 0.4 milligrams of Lexiscan was infused. The stress phase was continued for a total of 5 minutes. Heart rate at the end of the stress phase was 79 bpm with a blood pressure of 135/84 mm Hg. The EKG at the peak infusion revealed no significant ST-T wave changes. ??? Sestamibi was injected 20 seconds after the Lexiscan infusion. ??? Blood pressure at the end of the recovery phase was 123/82 mm Hg with a heart rate of 69 beats per minute. ??? CONCLUSION: 1. Normal EKG response to LexiScan infusion. 2. No LexiScan induced chest pain or cardiac arrhythmia. 3. Normal blood pressure and heart rate response. 4. Sestamibi/sestamibi perfusion scan pending; see separate report. Electronically Signed On 11-06-2022 22:07:46 CDT by Xiao Hinds M.D. [id number]
--- NOTE | 2022-11-05 09:08 | NMCV_ITS ---
NM cachorro perf SPECT r/s* [id number] Ezra Pickering Age: 56 Gender: M : 1965 Exam Date: 11/05/2022 09:08 Ordering Phys: Xiao Hinds MD ([email or web address]) Technologist: HALLEY Vick Exam Location: [facility] Indications: ATHEROSCLEROTIC HEART DISEASE, CHEST PAIN STRESS TEST Please see separate stress test report in [facility] for full findings IMAGE PROTOCOL Rest/Stress 1 Lexiscan Day Radiopharmaceutical Dose (mCi) Administration Site Administered by Rest: Tc-99m 11.0 IV HALLEY Reeder Sestamibi Stress:Tc-99m 32.7 IV HALLEY Reeder Sestamibi Rest: 05-Nov-2022 60 Discovery 630 Stress: 05-Nov-2022 30 Discovery 630 0.4mg Lexiscan. Images obtained in supine and prone position. SPECT RESULTS Technical Quality: Excellent Raw Data Analysis: Normal Image Corrections: No attenuation or motion correction applied Summed Stress Score: 0 Summed Rest Score: 0 Summed Difference Score: 0 PERFUSION FINDINGS SPECT images demonstrate homogeneous tracer distribution throughout the myocardium. FUNCTIONAL RESULTS (calculated via Gated SPECT) Stress Image LV EF (%): 82 Stress EDV (mL):87 TID: 1.02 Stress ESV (mL):16 FUNCTIONAL FINDINGS: The left ventricle is normal in size. Transient Ischemia Dilatation of 1. The left ventricular ejection fraction is normal with a value of 82%. There is normal left ventricular wall thickening. Normal end diastolic and end systolic volumes. IMPRESSIONS 1. Myocardial perfusion imaging is normal. 2. Overall left ventricular systolic function is normal without regional wall motion abnormalities, LVEF=82%. 3. Normal EKG response to lexiscan infusion. 4. Scan indicates low risk for cardiac events. Xiao Hinds MD (Electronically Signed) Final Date: 06 November 2022 22:14 S
[2022-11-05] MEDS: regadenoson 0.4 Mg/5 ml Syringe IVP (10:53)
[2022-11-05 13:07] VITALS: BP 123/82; PULSE 73
== END 2022-11-05 08:44 | disposition home or self-care (01) ==
PROVIDERS: PCP Family Medicine; Visit Provider Internal Medicine Cardiovascular Disease
DX: I25.10 Atherosclerotic heart disease of native coronary artery without angina pectoris (principal); R07.9 Chest pain, unspecified
CPT/HCPCS: 36415; 78452; 93017; 96374; A9500; J2785

== ENCOUNTER → 2022-12-05 08:52 | Outpatient (BNVA) | payer MEDICARE, SELFPAY | PROVIDERS: PCP Family Medicine; Visit Provider Anesthesiology Pain Medicine | DX: M54.16 Radiculopathy, lumbar region; M48.061 Spinal stenosis, lumbar region without neurogenic claudication; M47.12 Other spondylosis with myelopathy, cervical region; M54.12 Radiculopathy, cervical region; M47.812 Spondylosis without myelopathy or radiculopathy, cervical region; M47.816 Spondylosis without myelopathy or radiculopathy, lumbar region; M43.6 Torticollis | CPT/HCPCS: 99215 ==

== ENCOUNTER → 2023-01-06 09:35 | Outpatient (BNVA) | payer MEDICARE, SELFPAY | PROVIDERS: PCP Family Medicine; Visit Provider Anesthesiology Pain Medicine | DX: M54.2 Cervicalgia (principal); G89.29 Other chronic pain; M54.16 Radiculopathy, lumbar region; M48.061 Spinal stenosis, lumbar region without neurogenic claudication; M47.12 Other spondylosis with myelopathy, cervical region; M54.12 Radiculopathy, cervical region; M47.812 Spondylosis without myelopathy or radiculopathy, cervical region; M47.816 Spondylosis without myelopathy or radiculopathy, lumbar region; M25.511 Pain in right shoulder; M43.6 Torticollis; S12.9XXA Fracture of neck, unspecified, initial encounter; X58.XXXA Exposure to other specified factors, initial encounter; M54.9 Dorsalgia, unspecified | CPT/HCPCS: 72040; 72110; 73030; 99214 ==

== ENCOUNTER → 2023-02-13 08:47 | Outpatient (BNVA) | payer MEDICARE, SELFPAY | PROVIDERS: PCP Family Medicine; Visit Provider Anesthesiology Pain Medicine | DX: G89.29 Other chronic pain; S12.9XXA Fracture of neck, unspecified, initial encounter; M54.16 Radiculopathy, lumbar region; M48.061 Spinal stenosis, lumbar region without neurogenic claudication; M47.12 Other spondylosis with myelopathy, cervical region; M54.12 Radiculopathy, cervical region; M47.812 Spondylosis without myelopathy or radiculopathy, cervical region; M47.816 Spondylosis without myelopathy or radiculopathy, lumbar region; M43.6 Torticollis; X58.XXXA Exposure to other specified factors, initial encounter | CPT/HCPCS: 99214 ==

== ENCOUNTER → 2023-02-28 08:46 | Outpatient (BNVA) | payer MEDICARE, SELFPAY | PROVIDERS: PCP Family Medicine; Visit Provider Family Medicine | DX: I10 Essential (primary) hypertension (principal); Z13.6 Encounter for screening for cardiovascular disorders; J44.9 Chronic obstructive pulmonary disease, unspecified; E78.5 Hyperlipidemia, unspecified | CPT/HCPCS: 80053; 80061 ==

== ENCOUNTER → 2023-03-06 10:17 | Outpatient (BNVA) | payer MEDICARE, SELFPAY | PROVIDERS: PCP Family Medicine; Visit Provider Anesthesiology Pain Medicine | DX: M54.81 Occipital neuralgia (principal); G89.29 Other chronic pain; S12.9XXA Fracture of neck, unspecified, initial encounter; M54.16 Radiculopathy, lumbar region; M48.061 Spinal stenosis, lumbar region without neurogenic claudication; M47.12 Other spondylosis with myelopathy, cervical region; M54.12 Radiculopathy, cervical region; M47.812 Spondylosis without myelopathy or radiculopathy, cervical region; M47.816 Spondylosis without myelopathy or radiculopathy, lumbar region; M43.6 Torticollis; X58.XXXA Exposure to other specified factors, initial encounter | CPT/HCPCS: 64405; 99213 ==

== ENCOUNTER 2023-04-09 14:11 | Emergency (ER) | payer BC, SELFPAY ==
[2023-04-09 14:12] VITALS: BP 138/96; PULSE 112; RESP 16; TEMP 36.8; O2SAT 94; BMI 23.6
--- NOTE | 2023-04-09 14:17 | XRR_ITS ---
PROCEDURE INFORMATION: Exam: XR Chest Exam date and time: 04/09/2023 2:22 PM Age: 57 years old Clinical indication: Other: Seizure; Prior surgery; Surgery date: 6+ months; Surgery type: C spine TECHNIQUE: Imaging protocol: Radiologic exam of the chest. Views: 1 view. COMPARISON: CT lung screening [id number] 05/01/2022 6:53 AM FINDINGS: Lungs: Unremarkable. No consolidation. Pleural spaces: Unremarkable. No pleural effusion. No pneumothorax. Heart/Mediastinum: Unremarkable. No cardiomegaly. Bones/joints: Previous cervical spine fusion. XR/XR chest 1V portable [id number] IMPRESSION: No acute findings.
--- NOTE | 2023-04-09 14:17 | CT_ITS ---
WS: [id number] CT HEAD TECHNIQUE: Noncontrast CT of the head obtained from the skullbase to the vertex. CLINICAL INFORMATION: seizure COMPARISON: CT 2016 DLP: 1050.[address] scans at [facility] use at least one of these dose optimization techniques: automated e xposure control; mA and/or kV adjustment per patient size (includes targeted exams where dose is matc hed to clinical indication); or iterative reconstruction. FINDINGS: No evidence of intracranial hemorrhage or mass effect. Ventricular system and basal cisterns are kumar nt. No extra-axial fluid collections. No evidence of mass or mass effect. Normal hughes-white different iation. Paranasal sinuses and mastoid air cells are well aerated. .Normal visualized soft tissues. IMPRESSION: 1. No evidence of intracranial hemorrhage or mass effect. 2. No acute intracranial findings.
--- NOTE | 2023-04-09 14:22 | ECG_ITS ---
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 [id number]
[2023-04-09 14:23] LABS: Glucose Point of Care 94 mg/dL (70-110)
--- NOTE | 2023-04-09 14:25 | W.ED.SYNCOPE ---
HPI - Syncope General: Chief Complaint: Syncope Stated Complaint: syncope Time Seen by Provider: 04/09/23 14:13 Source: patient Mode of arrival: ambulatory Limitations: no limitations History of Present Illness: 57-year-old male is here with EMS after a syncopal event he states he was cutting wood and passed out per EMS bystanders also witnessed him have a seizure roughly 2 to 3 minutes they state when they arrived he was altered now awake and alert and answering all my questions. No history of seizures she denies any chest pain headache has no medical complaints at this time. Associated symptoms: Deny abdominal pain, chest pain, fever(s), headache(s) or nausea Review of Systems Const: Denies: fever(s), chills, body aches or change in appetite ENMT: Denies: throat pain or dental pain Card: Reports: syncope; Denies: chest pain Resp: Denies: dyspnea GI: Denies: abdominal pain, nausea, vomiting or diarrhea Musc: Denies: neck pain or back pain Skin/Breast: Denies: rash Neuro: Denies: headache(s) PFSH ED PFSH: Medical History Cigarette nicotine dependence Generalized anxiety disorder Major depressive disorder, recurrent severe without psychotic features Grief CAD (coronary artery disease) Psychiatric care Hyperlipidemia PAD (peripheral artery disease) Benign essential HTN Surgical History Hx of neck surgery x2 S/P excision of lipoma (06/08/20) left upper back Status post left inguinal hernia repair S/p bilateral carpal tunnel release S/P right knee surgery History of lumbar fusion Family History Mother No problems noted. Father , Had a pacemaker and defibrillator for 26 yeas Congestive heart failure Social History Smoking and tobacco/nicotine status: current some day tobacco/nicotine user cigarettes Packs smoked per day: 1 Alcohol intake: former Year of sobriety/quit date alcohol: 22 Substance/Drug Use: current Physical Exam Const: COMMON NORMALS: no acute distress, patient oriented x3 and healthy appearing HENMT: COMMON NORMALS: normocephalic and atraumatic HEAD & SCALP: normocephalic and atraumatic Eye: COMMON NORMALS: Equal, round and reactive pupils present and EOMs intact bilaterally PUPIL: Yes Equal, round and reactive pupils present Neck/C-Spine: COMMON NORMALS: full ROM and supple Chest: COMMONS NORMALS: normal inspection of the chest and normal palpation of entire chest wall Resp: COMMON NORMALS: normal respiratory effort, No retractions, No use of accessory muscles and clear to auscultation bilaterally AUSCULTATION: clear to auscultation bilaterally Cardio: COMMON NORMALS: regular rate, regular rhythm and No murmurs present (Cardio) RATE: regular rate RHYTHM: regular rhythm GI: COMMON NORMALS: Normal to inspection, nondistended, normoactive bowel sounds present, Soft to palpation, non-tender and no masses PALPATION: Yes Soft to palpation Extremity: COMMON NORMALS: normal to inspection and full ROM Neuro: COMMON NORMALS: patient oriented x3, moves all extremities and no focal motor deficits Psych: COMMON NORMALS: mental status grossly normal, Normal thought process present and cooperative THOUGHT PROCESS: Normal thought process present Skin: COMMON NORMALS: no rashes or lesions noted and no wounds GENERAL SKIN EXAM: no rashes or lesions noted Course Vital Signs: Vital signs: Vital Signs Temperature 98.2 F 04/09/23 14:12 Pulse Rate 112 H 04/09/23 14:12 Respiratory Rate 16 04/09/23 14:12 Blood Pressure 138/96 04/09/23 14:12 Pulse Oximetry 94 04/09/23 14:12 Oxygen Delivery Me thod Room Air 04/09/23 14:12 MDM - Syncope Medical Decision Making Patient presents here after a syncopal event is likely a vagal episode while he was chopping wood he had a possible seizure as well blood work imaging here is all normal no history of seizures he is stable for discharge he feels much improved he is to follow-up with his PCP we will get him neurology follow-up as well return if worsening Medical Records I reviewed the patient's medical records. Lab Data I reviewed the patient's lab results. 04/09/23 14:24 04/09/23 14:24 Radiology Impressions Chest X-Ray 04/09/23 14:17 IMPRESSION: No acute findings. Laboratory Results WBC 12.13 10^3/uL (3.29-11.43) H 04/09/23 14:24 RBC 4.89 10^6/uL (3.85-5.65) 04/09/23 14:24 Hgb 16.00 g/dL (11.27-16.99) 04/09/23 14:24 Hct 48.0 % (37-53) 04/09/23 14:24 MCV 98.2 fl (82-101) 04/09/23 14:24 MCH 32.7 pg (27-33) 04/09/23 14:24 MCHC 33.3 g/dL (30-55) 04/09/23 14:24 RDW 13.1 % (12.1-15.1) 04/09/23 14:24 Plt Count 193 10^3/cmm (157-399) 04/09/23 14:24 MPV 11.5 fL (7.4-10.4) H 04/09/23 14:24 Neut % (Auto) 60.3 % 04/09/23 14:24 Lymph % (Auto) 28.4 % 04/09/23 14:24 [place] % (Auto) 7.7 % 04/09/23 14:24 Eos % (Auto) 2.0 % 04/09/23 14:24 Baso % (Auto) 0.7 % 04/09/23 14:24 Neut # (Auto) 7.32 10^3/uL (1.8-7.7) 04/09/23 14:24 Lymph # (Auto) 3.4 10^3/uL (0.8-4.8) 04/09/23 14:24 [place] # (Auto) 0.9 10^3/uL (0.2-0.9) 04/09/23 14:24 Eos # (Auto) 0.2 10^3/uL (0.0-0.8) 04/09/23 14:24 Baso # (Auto) 0.1 10^3/uL (0.0-0.1) 04/09/23 14:24 Nucleated RBC % (auto) 0 % 04/09/23 14:24 Nucleated RBCs # 0.0 /100WBC 04/09/23 14:24 Sodium 137 mmol/L (136-145) 04/09/23 14:24 Potassium 4.0 mmol/L (3.5-5.1) 04/09/23 14:24 Chloride 99 mmol/L (98-107) 04/09/23 14:24 Carbon Dioxide 20 mmol/L (22-29) L 04/09/23 14:24 Anion Gap 22.0 (5-19) H 04/09/23 14:24 BUN 11 mg/dL (6-20) 04/09/23 14:24 Creatinine 1.1 mg/dL (0.7-1.2) 04/09/23 14:24 GFR Calculation 68.8 mL/min (90-130) L 04/09/23 14:24 Glucose 79 mg/dL (65-115) 04/09/23 14:24 POC Glucose 94 mg/dL (70-110) 04/09/23 14:20 Calculated Osmolality 282 mOsm/kg (285-295) L 04/09/23 14:24 Calcium 9.3 mg/dL (8.5-10.5) 04/09/23 14:24 Total Bilirubin 0.4 mg/dL (0.15-1.2) 04/09/23 14:24 AST 21 U/L (0-40) 04/09/23 14:24 ALT 18 U/L (0-41) 04/09/23 14:24 Alkaline Phosphatase 103 U/L (40-130) 04/09/23 14:24 Troponin T Baseline 7 ng/L (0-15) 04/09/23 14:24 Total Protein 6.9 g/dL (6.6-8.7) 04/09/23 14:24 Albumin 4.2 g/dL (3.5-5.2) 04/09/23 14:24 Globulin 2.7 g/dL (1.3-4.6) 04/09/23 14:24 All radiology interpretation(s) finalized by discharge EKG Data EKG 1: I personally reviewed and interpreted this EKG as follows: EKG interpretation date: 04/09/23 EKG interpretation time: 14:22 Interpretation: sinus tach hr [address] or t wave abnormalities qrs 76 qtc 381 Discharge Plan Discharge Patient Disposition: Home Clinical Impression: Syncope Qualifiers: Encounter type: initial encounter Condition: Stable Prescriptions: No Action methylprednisolone acetate [Depo-Medrol] 80 mg/mL suspension 80 mg intra-articular ONCE Qty: 1 0RF methylprednisolone acetate [Depo-Medrol] 40 mg/mL suspension 40 mg intra-articular ONCE Qty: 1 0RF bupivacaine (PF) 0.25 % (2.5 mg/mL) solution 1 ml intra-articular ONCE Qty: 1 0RF gabapentin 800 mg tablet 800 mg PO TID 30 Days Qty: 90 0RF duloxetine [Cymbalta] 60 mg capsule,delayed release(DR/EC) 120 mg PO .morning Rx Instructions: Take one capsule every morning tramadol 50 mg tablet 50 mg PO BID PRN (Reason: pain) Qty: 45 0RF nitroglycerin 0.4 mg tablet, sublingual See Rx Instructions .ROUTE .COMPLEX Qty: 25 3RF Dose Instruction: DISSOLVE 1 TABLET UNDER THE TONGUE EVERY 5 MINUTES NEEDED FOR CHEST PAIN. DO NOT EXCEED 3 DOSES PER EPISODE Rx Instructions: DISSOLVE 1 TABLET UNDER THE TONGUE EVERY 5 MINUTES NEEDED FOR CHEST PAIN. DO NOT EXCEED 3 DOSES PER EPISODE methylprednisolone acetate [Depo-Medrol] 80 mg/mL suspension 80 mg intra-articular ONCE Qty: 1 0RF triamcinolone acetonide [Kenalog] 40 mg/mL suspension 40 mg IM ONCE Qty: 1 0RF methylprednisolone acetate [Depo-Medrol] 40 mg/mL suspension 40 mg intra-articular ONCE Qty: 1 0RF bupivacaine (PF) 0.25 % (2.5 mg/mL) solution 1 ml intra-articular ONCE Qty: 1 0RF methocarbamol 500 mg tablet 500 mg PO TID Qty: 270 2RF Rx Instructions: One tablet three times per day budesonide-formoterol [Symbicort] 160-4.5 mcg/actuation HFA aerosol inhaler 2 puff inhalation Q12H Qty: 10.2 5RF albuterol sulfate 90 mcg/actuation HFA aerosol inhaler 2 puff inhalation 6XD PRN (Reason: shortness of breath or wheezing) Qty: 8.5 5RF atorvastatin 40 mg tablet 40 mg PO DAILY 90 Days Qty: 90 1RF amlodipine 10 mg tablet See Rx Instructions .ROUTE .COMPLEX Qty: 90 3RF Dose Instruction: TAKE 1 TABLET BY MOUTH DAILY Rx Instructions: TAKE 1 TABLET BY MOUTH DAILY metoprolol tartrate 75 mg tablet 75 mg PO BID Qty: 180 3RF topiramate 100 mg tablet 100 mg PO BID Qty: 60 2RF Discharge Orders: Discharge ED (Routine); Ordered 04/09/23 Ordered By: Dimitrios Astudillo Referrals: Laureano Carrillo MD [Physician] - 4-7 days Daphney Celestin DO [Primary Care Provider] - 4-7 days Discharge Diet: Advance as tolerated Discharge Activity: Resume usual activity Patient Instructions: Syncope (ED) Coding Level of Care Code ED Instrumentation Fitter for Josefina Love
[2023-04-09 14:33] LABS: Basophils # 0.1 10^3/uL (0.0-0.1); Basophils % 0.7 %; Eosinophils # 0.2 10^3/uL (0.0-0.8); Lymphocytes # 3.4 10^3/uL (0.8-4.8); Lymphocytes % 28.4 %; Mean Corpuscular HGB Conc 33.3 g/dL (30-55); Mean Corpuscular Hemoglobin 32.7 pg (27-33); Mean Corpuscular Volume 98.2 fl (82-101); Mean Platelet Volume 11.5 fL (7.4-10.4); Monocytes # 0.9 10^3/uL (0.2-0.9); Monocytes % 7.7 %; Neutrophils # 7.32 10^3/uL (1.8-7.7); Neutrophils % 60.3 %; Nucleated Red Blood Cells % 0 %; Platelet Count 193 10^3/cmm (157-399); Red Blood Count 4.89 10^6/uL (3.85-5.65); Red Cell Distribution Width 13.1 % (12.1-15.1); White Blood Count 12.13 10^3/uL (3.29-11.43)
[2023-04-09] MEDS: sodium chloride 0.9% 1,000 ML 999 ML IV (14:50)
[2023-04-09 15:03] LABS: Troponin(5th) Baseline 7 ng/L (0-15)
[2023-04-09 15:06] LABS: Alanine Aminotransferase 18 U/L (0-41); Albumin Level 4.2 g/dL (3.5-5.2); Alkaline Phosphatase 103 U/L (40-130); Aspartate Amino Transferase 21 U/L (0-40); Blood Urea Nitrogen 11 mg/dL (6-20); Calcium 9.3 mg/dL (8.5-10.5); Carbon Dioxide 20 mmol/L (22-29); Chloride 99 mmol/L (98-107); Globulin 2.7 g/dL (1.3-4.6); Glomerular Filtration Rate 68.8 mL/min (90-130); Glucose 79 mg/dL (65-115); Osmolality Calculated 282 mOsm/kg (285-295); Sodium 137 mmol/L (136-145); Total Bilirubin 0.4 mg/dL (0.15-1.2); Total Protein 6.9 g/dL (6.6-8.7)
[2023-04-09 16:03] VITALS: BP 129/84; PULSE 112; RESP 16; TEMP 36.8; O2SAT 94
--- NOTE | 2023-04-10 12:11 | DCPLANNER ---
Message was sent to neurology on 04/10/23 at 1212. Clinic to contact patient
== END 2023-04-09 16:04 | disposition home or self-care (01) ==
PROVIDERS: Emergency Provider Emergency Medicine; PCP Family Medicine
DX: R55 Syncope and collapse (principal); F17.210 Nicotine dependence, cigarettes, uncomplicated; I25.10 Atherosclerotic heart disease of native coronary artery without angina pectoris; E78.5 Hyperlipidemia, unspecified; I10 Essential (primary) hypertension
CPT/HCPCS: 36416; 70450; 71045; 80053; 82962; 84484; 85025; 93005; 99285; J7030

== ENCOUNTER 2023-04-24 23:49 | Emergency (ER) | payer MEDICARE, MEDICAID, SELFPAY ==
[2023-04-25] VITALS: BP 140/104; PULSE 87; RESP 16; O2SAT 93
--- NOTE | 2023-04-25 00:02 | W.ED.GENADLT ---
HPI - General Adult General: Chief complaint: General Medical Stated complaint: right neck/ shoulder hand pain Time Seen by Provider: 04/25/23 00:02 History of Present Illness: 57-year-old male patient comes in today with complaints of neck pain. Patient reports falling about 2 weeks ago and since then he has had increasing pain and discomfort to his neck. Patient does have a history of fusion of the cervical spine between C2 and C7. Review of the record noted that patient had a CT scan of the chest x-ray done at that time that showed no acute abnormalities. Patient was thought to have vasovagal which caused syncope. Patient at this time appears in mild to moderate pain. Patient has guarded movement of the neck due to pain and discomfort. Review of Systems General: Reports: 10 or more systems reviewed and unremarkable except in HPI and below Musc: Reports: neck pain PFSH ED PFSH: Medical History Cigarette nicotine dependence Generalized anxiety disorder Major depressive disorder, recurrent severe without psychotic features Grief CAD (coronary artery disease) Psychiatric care Hyperlipidemia PAD (peripheral artery disease) Benign essential HTN Surgical History Hx of neck surgery x2 S/P excision of lipoma (06/08/20) left upper back Status post left inguinal hernia repair S/p bilateral carpal tunnel release S/P right knee surgery History of lumbar fusion Family History Mother No problems noted. Father , Had a pacemaker and defibrillator for 26 yeas Congestive heart failure Social History Smoking and tobacco/nicotine status: current some day tobacco/nicotine user cigarettes Packs smoked per day: 1 Alcohol intake: former Year of sobriety/quit date alcohol: 22 Substance/Drug Use: current Physical Exam Const: COMMON NORMALS: alert HENMT: COMMON NORMALS: normocephalic HEAD & SCALP: normocephalic Neck/C-Spine: CERVICAL SPINE: No step off deformity, Yes Paracervical muscle tenderness and Yes Paracervical spasm left Resp: COMMON NORMALS: normal respiratory effort and clear to auscultation bilaterally AUSCULTATION: clear to auscultation bilaterally Cardio: COMMON NORMALS: regular rate RATE: regular rate Back/Pelvis: COMMON NORMALS: thoracic and lumbar spine normal to inspection Extremity: COMMON NORMALS: full ROM Neuro: SENSORIUM/ORIENTATION: Yes alert Skin: COMMON NORMALS: turgor normal GENERAL SKIN EXAM: turgor normal Course Vital Signs: Vital signs: Vital Signs Pulse Rate 87 04/25/23 00:00 Respiratory Rate 16 04/25/23 00:00 Blood Pressure 140/104 04/25/23 00:00 Pulse Oximetry 93 04/25/23 00:00 [place] - General Adult Medical Decision Making 57-year-old male patient comes in with increasing neck pain after a fall from 2 weeks ago. On exam patient appears nontoxic. Patient moves all extremities well. Patient reports muscle spasms in his neck and shoulder. Exam notes some muscle tenderness in the trapezius and paraspinous muscles of the cervical spine. No redness or induration is noted in the skin. Vital signs are normal. Differential diagnosis includes cervical muscle spasm, cervical strain, intervertebral disc disease, facet arthritis. X-rays noted surgical hardware without any signs of fracture. Patient was recommended to follow-up with primary care or rehabilitation construction specialist for further evaluation. Lab Data Radiology Impressions Cervical Spine X-Ray 04/25/23 00:06 IMPRESSION: 1. Negative for fracture or dislocation. 2. Surgical hardware in the spine. All radiology interpretation(s) finalized by discharge Discharge Plan Discharge Patient Disposition: Home Clinical Impression: Cervical radiculopathy, Status post cervical spinal fusion Condition: Stable Prescriptions: New diclofenac sodium 75 mg tablet,delayed release (DR/EC) 75 mg PO BID Qty: 14 0RF hydrocodone-acetaminophen 5-325 mg tablet 1 tab PO Q8H PRN (Reason: pain (scale score 7-10)) 3 Days Qty: 7 0RF prednisone 20 mg tablet 20 mg PO DAILY 7 Days Qty: 7 0RF No Action duloxetine [Cymbalta] 60 mg capsule,delayed release(DR/EC) 60 mg PO QAM Qty: 60 3RF Rx Instructions: Take two capsules every morning nitroglycerin 0.4 mg tablet, sublingual See Rx Instructions .ROUTE .COMPLEX Qty: 25 3RF Dose Instruction: DISSOLVE 1 TABLET UNDER THE TONGUE EVERY 5 MINUTES NEEDED FOR CHEST PAIN. DO NOT EXCEED 3 DOSES PER EPISODE Rx Instructions: DISSOLVE 1 TABLET UNDER THE TONGUE EVERY 5 MINUTES NEEDED FOR CHEST PAIN. DO NOT EXCEED 3 DOSES PER EPISODE methocarbamol 500 mg tablet 500 mg PO TID Qty: 270 2RF budesonide-formoterol [Symbicort] 160-4.5 mcg/actuation HFA aerosol inhaler 2 puff inhalation Q12H Qty: 10.2 5RF albuterol sulfate 90 mcg/actuation HFA aerosol inhaler 2 puff inhalation 6XD PRN (Reason: shortness of breath or wheezing) Qty: 8.5 5RF atorvastatin 40 mg tablet 40 mg PO DAILY 90 Days Qty: 90 1RF metoprolol tartrate 75 mg tablet 75 mg PO BID Qty: 180 3RF topiramate 100 mg tablet 100 mg PO BID Qty: 60 2RF gabapentin 800 mg tablet 800 mg PO TID 30 Days Qty: 90 0RF tramadol 50 mg tablet 50 mg PO BID PRN (Reason: pain) Qty: 45 0RF amlodipine 10 mg tablet 10 mg PO DAILY Discharge Orders: Discharge ED (Routine); Ordered 04/25/23 Ordered By: Ezra Cazares Referrals: Daphney Celestin DO [Primary Care Provider] - Discharge Diet: Usual diet Discharge Activity: Increase activity as tolerated Patient Instructions: Opioid Safety, Pain Management Activity Restrictions/Additional Instructions: Use ice and heat to help with the pain. Follow-up with primary care or pain career discovery teacher for further evaluation and treatment. Return to ER for new concerns. Coding Level of Care Code ED Data Review Specialist for Josefina Love
--- NOTE | 2023-04-25 00:06 | XRR_ITS ---
PROCEDURE INFORMATION: Exam: XR Cervical Spine Exam date and time: 04/25/2023 12:22 AM Age: 57 years old Clinical indication: Injury or trauma; Fall; Blunt trauma; Prior surgery; Surgery date: 6+ months; Surgery type: Neck; Additional info: Fall injury, one week no prior imaging TECHNIQUE: Imaging protocol: Radiologic exam of the cervical spine. Views: 2 or 3 views. COMPARISON: CR XR cervical spine 3V* [id number] 01/06/2023 9:47 AM FINDINGS: Bones/joints: Surgical hardware in the spine. Soft tissues: Unremarkable. XR/XR cervical spine 3V* [id number] IMPRESSION: 1. Negative for fracture or dislocation. 2. Surgical hardware in the spine.
[2023-04-25] MEDS: dexamethasone 10 mg/mL INJ IM (00:38)
[2023-04-25] MEDS: ketorolac 30 mg/mL INJ IM (00:38)
== END 2023-04-25 01:05 | disposition home or self-care (01) ==
PROVIDERS: Emergency Provider Nurse Practitioner Family; PCP Family Medicine
DX: M54.12 Radiculopathy, cervical region (principal); Z98.890 Other specified postprocedural states; I25.10 Atherosclerotic heart disease of native coronary artery without angina pectoris; E78.5 Hyperlipidemia, unspecified; I10 Essential (primary) hypertension; F17.210 Nicotine dependence, cigarettes, uncomplicated
CPT/HCPCS: 72040; 96372; 99284; J1100; J1885

== ENCOUNTER → 2023-05-06 09:06 | Outpatient (BNVA) | payer MEDICARE, MEDICAID, SELFPAY | PROVIDERS: PCP Family Medicine; Visit Provider Anesthesiology Pain Medicine | DX: M47.12 Other spondylosis with myelopathy, cervical region (principal); M54.12 Radiculopathy, cervical region; Z98.1 Arthrodesis status; G89.29 Other chronic pain; S12.9XXA Fracture of neck, unspecified, initial encounter; M54.16 Radiculopathy, lumbar region; M48.061 Spinal stenosis, lumbar region without neurogenic claudication; M47.812 Spondylosis without myelopathy or radiculopathy, cervical region; M47.816 Spondylosis without myelopathy or radiculopathy, lumbar region; M43.6 Torticollis; X58.XXXA Exposure to other specified factors, initial encounter | CPT/HCPCS: 99214 ==

== ENCOUNTER 2023-05-12 07:37 | Outpatient (CLI) | payer MEDICARE, MEDICAID, SELFPAY ==
--- NOTE | 2023-05-12 08:00 | USCV_ITS ---
Ezra Pickering Age: 57 Gender: M : 1965 Exam Date: 05/12/2023 07:50 Ordering Phys: Daphney Celestin DO Technologist: Exam Location: [facility] Indication: chest pain BP: 140 / 9 HR: 0 Rhythm: Sinus Technical Quality: Good MEASUREMENTS (Male / Female) Normal Values 2D ECHO LV Diastolic Diameter PLAX 3.8 cm 4.2 - 5.9 / 3.9 - 5.3 cm IVS Diastolic Thickness 1.0 cm 0.6 - 1.0 / 0.6 - 0.9 cm IVS Systolic Thickness 1.2 cm LVPW Diastolic Thickness 0.9 cm 0.6 - 1.0 / 0.6 - 0.9 cm LVPW Systolic Thickness 1.2 cm LVOT Diameter 2.0 cm LV Ejection Fraction 2D Teich 50.4 % LV Ejection Fraction MOD 2C 71.9 % LV Ejection Fraction 2C AL 72.1 % LA Diameter 3.3 cm RA Systolic Volume 4C AL 17.2 ml RA Systolic Volume 4C MOD 17.3 ml Aorta at Sinotubular Diameter 2.3 cm IVC Diameter 0.8 cm M-MODE LA Ao Ratio MM 0.9 AV Cusp Separation MM 2.6 cm DOPPLER AV Peak Velocity 132.0 cm/s LVOT Peak Velocity 107.0 cm/s AV Area Cont Eq vti 2.7 cm squared AV Area Cont Eq pk 2.6 cm squared MV Peak Velocity 90.0 cm/s MV Area PHT 3.4 cm squared Mitral E to A Ratio 1.0 TR Peak Velocity 283.0 cm/s TR Peak Gradient 32.0 mmHg TR Mean Velocity 197.0 cm/s TR Mean Gradient 18.1 mmHg TR Velocity Time Integral 83.4 cm TV Peak E Velocity 82.0 cm/s PV Peak Velocity 130.0 cm/s FINDINGS Left Ventricle Normal left ventricular size and systolic function, EF 71% . No gross wall motion abnormalities. Right Ventricle Normal right ventricular size and systolic function. Right Atrium Normal right atrial size. Left Atrium Normal left atrial size. Mitral Valve Mild mitral valve regurgitation. Aortic Valve Thickened aortic valve. Tricuspid Valve No gross abnormalities noted Pulmonic Valve No gross abnormalities no Pericardium No pericardial effusion. Aorta Normal ascending aorta dimension. IVC The inferior vena cava appears normal. CONCLUSIONS Normal left ventricular size and systolic function, EF 71% . No gross wall motion abnormalities. Thickened aortic valve. Mild mitral valve regurgitation. There is no pericardial effusion. There are no intracardiac masses. No similar previous studies are available for comparison Dr Lyssa Matson MD [facility] (Electronically Signed) Final Date: 13 May 2023 16:44 S
== END 2023-05-12 07:38 | disposition home or self-care (01) ==
LOC: RAD 07:38
PROVIDERS: PCP Family Medicine; Visit Provider Family Medicine
DX: R55 Syncope and collapse (principal); R07.9 Chest pain, unspecified; I08.0 Rheumatic disorders of both mitral and aortic valves
CPT/HCPCS: 93306

== ENCOUNTER 2023-05-14 06:32 | Outpatient (CLI) | payer MEDICARE, MEDICAID, SELFPAY ==
--- NOTE | 2023-05-14 06:45 | USCV_ITS ---
Ezra Pickering Age: 57 Gender: M : 1965 Exam Date: 05/14/2023 06:42 Ordering Phys: Daphney Celestin DO Technologist: SHANAE Exam Location: [facility] [place] Indication: SYNCOPE Risk Factors: Previous Vascular Surgery: Right Brachial BP: / Left Brachial BP: / Right Left Velocity (cm/s) Spectral Plaque Velocity (cm/s) Spectral Plaque Syst/Diast Broadening Syst/Diast Broadening 83.80/ 22.10 Prox CCA 71.30 / 23.80 66.40/ 19.70 Mid CCA 51.50 / 20.10 53.40/ 18.90 Distal CCA 55.00 / 16.60 32.40/ 15.90 Prox ICA 41.80 / 16.40 51.80/ 25.40 Mid ICA 58.70 / 28.40 71.30/ 32.30 Distal ICA 63.50 / 34.50 68.50 ECA 53.40 1.30 ICA/CCA 1.20 Antegrade Vertebral Antegrade 31.30/ 12.30 cm/s 58.70/ 18.80 cm/s Tri Subclavian Tri 106.5 80.70 0 FINDINGS Comparison: none available. No significant elevation of systolic or diastolic velocities. Waveforms are normal. Mild bilateral scattered calcified plaque and intimal thickening throughout the common carotid arteries and extending through the bifurcation. CONCLUSIONS Bilateral ICA stenosis less than 50%. Mild carotid atherosclerosis. Dr. Latanya Savage DO (Electronically Signed) Final Date: 14 May 2023 07:33 S
== END 2023-05-14 06:33 | disposition home or self-care (01) ==
LOC: RAD 06:32
PROVIDERS: PCP Family Medicine; Visit Provider Family Medicine
DX: R55 Syncope and collapse (principal); I65.23 Occlusion and stenosis of bilateral carotid arteries
CPT/HCPCS: 93880

== ENCOUNTER → 2023-06-05 09:45 | Outpatient (BNVA) | payer MEDICARE, SELFPAY | PROVIDERS: PCP Family Medicine; Visit Provider Anesthesiology Pain Medicine | DX: M54.16 Radiculopathy, lumbar region (principal); G89.29 Other chronic pain; M47.12 Other spondylosis with myelopathy, cervical region; M54.12 Radiculopathy, cervical region; Z98.1 Arthrodesis status; M54.9 Dorsalgia, unspecified; S12.9XXA Fracture of neck, unspecified, initial encounter; M48.061 Spinal stenosis, lumbar region without neurogenic claudication; M47.812 Spondylosis without myelopathy or radiculopathy, cervical region; M47.816 Spondylosis without myelopathy or radiculopathy, lumbar region; M43.6 Torticollis; X58.XXXA Exposure to other specified factors, initial encounter | CPT/HCPCS: 99214 ==

== ENCOUNTER 2023-06-27 13:07 | Outpatient (CLI) | payer MEDICARE, SELFPAY ==
--- NOTE | 2023-06-27 13:30 | CT_ITS ---
WS: [id number] LDCT LUNG CANCER SCREENING TECHNIQUE: Noncontrast CT of the chest with coronal and sagittal reformatted images. CLINICAL INFORMATION: annual screening COMPARISON: CT lung screening 05/01/2022 DLP: 70.07 mGy.cm DIvol: Mean CTDIvol: 1.10 (mGy) All CT scans at [facility] use at least one of these dose optimization techniques: automat ed exposure control; mA and/or kV adjustment per patient size (includes targeted exams where dose is matched to clinical indication); or iterative reconstruction. FINDINGS: Mild chronic centrilobular emphysematous changes with hyperinflation. Stable calcified granuloma RIGH T lower lobe. Densely calcified lymph nodes in the mediastinum and RIGHT hilum. No axillary lymphaden opathy. Subsegmental atelectasis in the RIGHT lower lobe and lingula. 4 mm noncalcified nodule LEFT upper lobe anteriorly. Tiny noncalcified nodule RIGHT upper lobe automotive buyer ior inferior segment along the fissure. A few additional scattered tiny subcentimeter nodules. No new suspicious pulmonary parenchymal opacities. Mild coronary artery calcification. Small esophageal hiatal hernia. Adrenal glands are normal. Normal caliber thoracic aorta. Normal caliber proximal main pulmonary arteries. Normal caliber descending t horacic aorta. Mild aortic calcification. Mild thoracic curve. Mild thoracic kyphosis. Postoperative changes in the lower cervical and upper th oracic spine. Chronic anterior wedging in the mid thoracic spine with endplate Schmorl's nodes. IMPRESSION: CT/CT lung screening 10000 LUNG-RADS: 2-Benign Appearance or Behavior FOLLOW UP: 12 Month: Continue annual screening with LDCT
== END 2023-06-27 13:08 | disposition home or self-care (01) ==
LOC: RAD 13:08
PROVIDERS: PCP Family Medicine; Visit Provider Family Medicine
DX: Z12.2 Encounter for screening for malignant neoplasm of respiratory organs (principal); J43.2 Centrilobular emphysema; F17.210 Nicotine dependence, cigarettes, uncomplicated; K44.9 Diaphragmatic hernia without obstruction or gangrene; I25.10 Atherosclerotic heart disease of native coronary artery without angina pectoris; R91.1 Solitary pulmonary nodule; M40.204 Unspecified kyphosis, thoracic region
CPT/HCPCS: 36415; 71271; 82607; 82746; 83090; 83921; 84439; 84443; 84481

== ENCOUNTER → 2023-07-02 10:02 | Outpatient (BNVA) | payer MEDICARE, SELFPAY | PROVIDERS: PCP Family Medicine; Visit Provider Anesthesiology Pain Medicine | DX: M47.12 Other spondylosis with myelopathy, cervical region (principal); M54.12 Radiculopathy, cervical region; Z98.1 Arthrodesis status; G89.29 Other chronic pain; S12.9XXA Fracture of neck, unspecified, initial encounter; M54.50 Low back pain, unspecified; M54.16 Radiculopathy, lumbar region; M48.061 Spinal stenosis, lumbar region without neurogenic claudication; M47.812 Spondylosis without myelopathy or radiculopathy, cervical region; M47.816 Spondylosis without myelopathy or radiculopathy, lumbar region; M43.6 Torticollis; X58.XXXA Exposure to other specified factors, initial encounter | CPT/HCPCS: 99214 ==

== ENCOUNTER → 2023-07-29 09:12 | Outpatient (BNVA) | payer MEDICARE, SELFPAY | PROVIDERS: PCP Family Medicine; Visit Provider Psychiatry & Neurology Neurology | DX: R56.9 Unspecified convulsions (principal); R55 Syncope and collapse | CPT/HCPCS: 95813 ==

== ENCOUNTER → 2023-08-13 15:12 | Outpatient (BNVA) | payer MEDICARE, SELFPAY | PROVIDERS: PCP Family Medicine; Visit Provider Nurse Practitioner Psychiatric/Mental Health | DX: F33.2 Major depressive disorder, recurrent severe without psychotic features (principal); Z79.899 Other long term (current) drug therapy; F41.1 Generalized anxiety disorder; F17.210 Nicotine dependence, cigarettes, uncomplicated | CPT/HCPCS: 80053; 80061; 83036 ==

== ENCOUNTER → 2024-03-04 10:02 | Outpatient (BNVA) | payer MEDICARE, SELFPAY | PROVIDERS: Visit Provider Podiatrist Foot & Ankle Surgery | DX: L60.3 Nail dystrophy (principal) | CPT/HCPCS: 11750; 99203 ==

== ENCOUNTER 2024-03-10 11:46 | Outpatient (RCR) | payer MEDICARE, SELFPAY | END 2024-04-02 23:59 | disposition home or self-care (01) | LOC: SPT 11:46 | PROVIDERS: PCP Internal Medicine Cardiovascular Disease; Visit Provider Nurse Practitioner Family | DX: G89.4 Chronic pain syndrome (principal) | CPT/HCPCS: 97110; 97162 ==

== ENCOUNTER 2024-04-05 13:59 | Outpatient (RCR) | payer MEDICARE, SELFPAY | END 2024-04-05 14:00 | disposition home or self-care (01) | LOC: SPT 13:59 | PROVIDERS: PCP Internal Medicine Cardiovascular Disease; Visit Provider Nurse Practitioner Family | DX: G89.4 Chronic pain syndrome (principal) | CPT/HCPCS: 97110 ==

== ENCOUNTER → 2024-06-25 15:56 | Outpatient (BNVA) | payer MEDICARE, SELFPAY | PROVIDERS: PCP Family Medicine; Visit Provider Family Medicine | DX: I25.10 Atherosclerotic heart disease of native coronary artery without angina pectoris (principal) | CPT/HCPCS: 80053; 80061; 85025 ==

== ENCOUNTER → 2024-11-04 14:38 | Outpatient (BNVA) | payer MEDICARE, SELFPAY | PROVIDERS: PCP Family Medicine; Visit Provider Orthopaedic Surgery | DX: S12.100A Unspecified displaced fracture of second cervical vertebra, initial encounter for closed fracture (principal); M48.061 Spinal stenosis, lumbar region without neurogenic claudication; M54.16 Radiculopathy, lumbar region; W19.XXXA Unspecified fall, initial encounter | CPT/HCPCS: 72040; 72100; 99213 ==

== ENCOUNTER → 2024-11-18 14:29 | Outpatient (BNVA) | payer MEDICARE, SELFPAY | PROVIDERS: PCP Family Medicine; Visit Provider Orthopaedic Surgery | DX: M54.16 Radiculopathy, lumbar region (principal) | CPT/HCPCS: 99213 ==

== ENCOUNTER → 2024-11-24 09:01 | Outpatient (BNVA) | payer MEDICARE, SELFPAY | PROVIDERS: PCP Family Medicine; Visit Provider Dermatology | DX: L21.8 Other seborrheic dermatitis (principal); L72.0 Epidermal cyst; S70.362A Insect bite (nonvenomous), left thigh, initial encounter; X58.XXXA Exposure to other specified factors, initial encounter; D23.71 Other benign neoplasm of skin of right lower limb, including hip; D22.4 Melanocytic nevi of scalp and neck; L82.1 Other seborrheic keratosis; D48.5 Neoplasm of uncertain behavior of skin | CPT/HCPCS: 11102; 99204 ==

== ENCOUNTER → 2024-12-20 11:14 | Outpatient (BNVA) | payer MEDICARE, SELFPAY | PROVIDERS: PCP Family Medicine; Referring Provider Family Medicine; Visit Provider Anesthesiology Pain Medicine | DX: M51.16 Intervertebral disc disorders with radiculopathy, lumbar region (principal); Z96.82 Presence of neurostimulator; J84.10 Pulmonary fibrosis, unspecified; Z98.890 Other specified postprocedural states; Z98.1 Arthrodesis status | CPT/HCPCS: 72110 ==

== ENCOUNTER → 2025-01-18 09:14 | Outpatient (BNVA) | payer MEDICARE, SELFPAY | PROVIDERS: PCP Family Medicine; Visit Provider Anesthesiology Pain Medicine | DX: M79.18 Myalgia, other site (principal); M54.16 Radiculopathy, lumbar region; M48.061 Spinal stenosis, lumbar region without neurogenic claudication; M47.12 Other spondylosis with myelopathy, cervical region; M54.12 Radiculopathy, cervical region; M47.812 Spondylosis without myelopathy or radiculopathy, cervical region; M47.816 Spondylosis without myelopathy or radiculopathy, lumbar region; F17.210 Nicotine dependence, cigarettes, uncomplicated | CPT/HCPCS: 20553; 99214; J1010; J3490 ==

== ENCOUNTER → 2025-02-03 14:34 | Outpatient (BNVA) | payer MEDICARE, SELFPAY | PROVIDERS: PCP Family Medicine; Referring Provider Family Medicine; Visit Provider Internal Medicine Cardiovascular Disease | DX: I25.10 Atherosclerotic heart disease of native coronary artery without angina pectoris (principal); R55 Syncope and collapse; M54.50 Low back pain, unspecified; G89.29 Other chronic pain; Z87.891 Personal history of nicotine dependence; I10 Essential (primary) hypertension | CPT/HCPCS: 99214 ==